=== PATIENT | male | born 1950 | race Caucasian/White ===

== ENCOUNTER 2023-12-24 08:04 | Outpatient (OUT) | payer MEDICARE, OTHER, SELFPAY ==
[2023-12-24 10:36] LABS: Prostate Specific Antigen Dx 1.34 ng/mL (<=4.00)
== END 2023-12-24 08:05 | disposition home or self-care (01) ==
LOC: LAB 08:08
PROVIDERS: PCP Family Medicine; Visit Provider Urology
DX: R97.20 Elevated prostate specific antigen [PSA] (principal)
CPT/HCPCS: 36415; 84153

== ENCOUNTER 2024-01-27 09:41 | Outpatient (OUT) | payer MEDICARE, OTHER, SELFPAY ==
--- NOTE | 2024-01-27 09:47 | XR_ITS ---
The [address] [address] Patient Name: BRODY HUFFMAN MRN: [id number] date: 1950 Sex: M Assigned Patient Location: RAD Current Patient Location: RAD Accession/Order Number: [id number] Exam Date: 01/27/2024 09:58 Report Date: 01/27/2024 10:47 At the request of: AURELIA CLEMENTS Procedure: XR chest 2V PROCEDURE: XR chest 2V DATE: 01/27/2024 9:58 AM EST COMPARISONS: 08/03/2022 CLINICAL INDICATION: 73 years Male Cough FINDINGS: The cardiomediastinal silhouette and pulmonary vasculature are within normal limits. There is mild to moderate diffuse increased interstitial markings throughout all lung egan slightly more prominent than 08/03/2022. Some of this probably represents chronic lung changes. Some of this could represent a small amount of interstitial fluid or interstitial inflammatory infiltrate. There is no evidence of pleural effusion or pneumothorax. XR/XR chest 2V IMPRESSION: Mild to moderate diffuse increase interstitial markings of unclear etiology. Inflammatory infiltrate is a possibility given the history of cough. It's possible however that most of this represents chronic lung changes. Electronically authenticated by: JOSUE CORONA Date: 01/27/2024 10:47
--- OUTSIDE RECORDS SUMMARY | 2024-01-27 10:01 | XMS_ITS | CCD ---
Author Organization [facility] Care Team Providers Care Belt Tender Name Role Phone SOCORRO MAN Primary Care Physician JAMARCUS ., SHERRY Admitting Unavailable MAN ., DR SOCORRO Allen Primary Care Unavailable JAMARCUS ., SHERRY Attending Unavailable JAMARCUS ., SHERRY Consulting Unavailable [place] Consulting Unavailable DONOVAN ., DR SOCORRO Allen Admitting Unavailable MAN ., DR SOCORRO Allen Attending Unavailable MAN ., DR SOCORRO Allen Consulting Unavailable MAN ., DR SOCORRO Allen Primary Care Unavailable MAN ., DR SOCORRO Allen Primary Care Unavailable EVANS ., DR MCCOLLUM Admitting Unavailable EVANS ., DR MCCOLLUM Attending Unavailable ABBY ., DR MCCOLLUM Consulting Unavailable Kyle Daly. Primary Care Physician [phone] LIAN MONTENEGRO Attending Unavailable Kyle Daly Attending Unavailable Duane EVANS Attending Unavailable Duane EVANS Attending Unavailable Kyle Daly Attending Unavailable Kyle Daly Attending Unavailable Kyle Daly Attending Unavailable Kyle Daly. Attending Unavailable Allergies Allergy Classification Reported Allergen(s) Allergy Type Date of Onset Reaction(s) Facility (12 sources) Sulfamethoxazole / Trimethoprim; Translations: [sulfamethoxazole-tr imethoprim] Drug Allergy Unknown (qualifier value), Weal (disorder) [facility] (12 sources) Sulfonamides (Antibiotic); Translations: [sulfa drugs] Drug allergy Mild (qualifier value), Weal (disorder) [facility] (1 source) Sulfonamides (Antibiotic) Drug allergy (disorder) 3 [facility] Repository Medications Current Medications Medication Drug Class(es) Dates Sig (Normalized) Sig (Original) Acetaminophen (5 sources) Start: 10-22-2022 acetaminophen 500 mg, PRN as needed for pain, Refills(s) 0 Start Date: 10/22/22 Status: Ordered acetaminophen 325 mg / HYDROcodone bitartrate 7.5 mg oral tablet (3 sources) Opioid Agonist Start: 05-29-2022 take 1 tablet by mouth once Dana 325 mg-7.5 mg oral tablet 1 tab(s), Oral, Once, 1 tab(s), Refill(s) 0, Take 1 hour prior to procedure. Don't drive or operate machinery while taking., [facility], 180, cm, 05/29/22 8:08:00 EST, Height/Length Dosing, 99, kg, 05/29/22 8:08:00 EST, Weight Dosing Start Date: 05/29/22 Status: Ordered Ascorbic Acid (7 sources) Vitamin C Start: 09-02-2022 Vitamin C Oral, Daily, Refills(s) 0, Prophylaxis Start Date: 09/02/22 Status: Ordered Start: 09-02-2022 Vitamin C Refi lls(s) 0 Start Date: 09/02/22 Status: Ordered ciprofloxacin 500 mg oral tablet (2 sources) Quinolone Antimicrobial Start: 05-29-2022 End: 06-05-2022 Cipro 500 mg Tab 500 mg = 1 tab(s), Oral, q12hr, Start 3 days prior to procedure, X 7 day(s), # 14 tab(s), Refills(s) 0, Pharmacy: [facility], 180, cm, 05/29/22 8:08:00 EST, Height/Length Dosing, 99, kg, 05/29/22 8:08:00 EST, Weight Dosing Start Date: 05/29/22 Stop Date: 06/05/22 Status: Ordered Co-Q10 (1 source) Start: 10-25-2023 Co-Q10 See Instructions, Oral daily, Refills(s) 0 Start Date: 10/25/23 Status: Ordered finasteride 5 mg oral tablet (11 sources) 5-alpha Reductase Inhibitor Start: 12-27-2023 take 1 tablet by mouth once daily finasteride 5 mg Tab 5 mg = 1 tab(s), Oral, Daily, # 30 tab(s), Refills(s) 11, Pharmacy: [facility], 180, cm, 12/27/23 9:00:00 EDT, Height/Length Dosing, 106, kg, 12/27/23 9:00:00 EDT, Weight Dosing Start Date: 12/27/23 Status: Ordered Start: 04-21-2022 take 1 tablet by [facility] once daily finasteride 5 mg Tab 5 mg = 1 tab(s), Oral, Daily, # 30 tab(s), Refills(s) 11, Pharmacy: [facility], 180, cm, 05/28/21 8:49:00 EST, Height/Length Dosing, 99, kg, 05/28/21 8:49:00 EST, Weight Dosing Start Date: 04/21/22 Status: Ordered Fish Oils (7 sources) Start: 09-21-2022 take 1 capsule by [facility] once daily Fish Oil 500 mg oral capsule 500 mg = 1 cap(s), Oral, Daily, Refills(s) 0, Prophylaxis Start Date: 09/21/22 Status: Ordered Start: 09-21-2022 take 1 capsule by [facility] once daily Fish Oil 500 mg oral capsule 500 mg = 1 cap(s), Oral, Daily, Refills(s) 0 Start Date: 09/21/22 Status: Ordered melatonin 3 mg oral tablet (5 sources) Start: 10-22-2022 take 3 mg by mouth once daily at bedtime as needed for sleep melatonin 3 mg, Oral, Once a day (at bedtime), PRN as needed for sleep, Refills(s) 0, Sleep Start Date: 10/22/22 Status: Ordered Start: 10-22-2022 melatonin 3 mg , PRN as needed for sleep, Refills(s) 0 Start Date: 10/22/22 Status: Ordered Multi Vitamin+ (11 sources) Start: 05-04-2019 Multi Vitamin+ Refill(s) 0, Prophylaxis Start Date: 05/04/19 Status: Ordered Start: 05-04-2019 Multi Vitamin+ Refill(s) 0 Start Date: 05/04/19 Status: Ordered naproxen 500 mg oral tablet (5 sources) Nonsteroidal Anti-inflammatory Drug Start: 10-22-2022 naproxen 500 mg, Oral, PRN as needed for pain, Refills(s) 0 Start Date: 10/22/22 Status: Ordered Vitamin D (11 sources) Start: 05-10-2020 Vitamin D International_Unit, Oral, Daily, Refills(s) 0, Prophylaxis Start Date: 05/10/20 Status: Ordered Start: 05-10-2020 Vitamin D Inte rnational_Unit, Oral, Daily, Refills(s) 0 Start Date: 05/10/20 Status: Ordered Zinc (11 sources) Start: 05-28-2021 take 1 mg by mouth once daily Zinc mg, Oral, Daily, Refills(s) 0, Prophylaxis Start Date: 05/28/21 Status: Ordered Start: 05-28-2021 take 1 mg by mouth once daily Zinc mg, Oral, Daily, Refills(s) 0 Start Date: 05/28/21 Status: Ordered Problems Active Problems Problem Classification Problem Date Documented Da te Episodic/Chronic Cataract (1 source) Bilateral age-related nuclear cataracts Onset: 09-21-2023 10-25-2023 Chronic Genitourinary symptoms and ill-defined conditions (20 sources) Blood in urine; Translations: [Increased frequency of urination] 05-04-2019 Episodic Hyperplasia of prostate (19 sources) Benign prostatic hypertrophy with outflow obstruction; Translations: [Benign prostatic hyperplasia with lower urinary tract symptoms] Onset: 05-25-2022 Chronic Inflammatory conditions of male genital organs (11 sources) Prostatitis 05-04-2019 Episodic Other aftercare (1 source) Other [place] [facility] (current) drug therapy; Translations: [OTH [facility] CURRENT DRUG THERAPY] Onset: 08-04-2022 Episodic Other male genital disorders (3 sources) Male erectile dysfunction, unspecified; Translations: [Erectile dysfunction] Onset: 05-29-2022 Chronic Other male genital disorders (11 sources) Impotence 05-12-2019 Chronic Other nutritional; endocrine; and metabolic disorders (7 sources) Body mass index 30+ - obesity 05-29-2022 Chronic Other screening for suspected conditions (not mental disorders or infectious disease) (14 sources) Raised prostate specific antigen; Translations: [Elevated prostate specific antigen [PSA]] Onset: 05-29-2022 Episodic Other upper respiratory disease (5 sources) Seasonal allergy 10-22-2022 Chronic Pneumonia (except that caused by tuberculosis or sexually transmitted disease) (1 source) Pneumonia (except that caused by tuberculosis or sexually transmitted disease); Translations: [PNEUMONIA D/T CORONAVIRUS DIS 2019] Onset: 08-04-2022 Pulmonary heart disease (10 sources) Personal history of pulmonary embolism; Translations: [H/O: pulmonary embolus] Onset: 08-04-2022 09-02-2022 Episodic Residual codes; unclassified (3 sources) Family history of cancer; Translations: [Family history of malignant neoplasm of prostate] Onset: 05-29-2022 Episodic Residual codes; unclassified (11 sources) Family history of prostate cancer 05-12-2019 Episodic Residual codes; unclassified (4 sources) Screening - NAD 05-29-2022 Episodic Screening and history of mental health and substance abuse codes (14 sources) Ex-smoker; Translations: [Personal history of nicotine dependence] Onset: 08-04-2022 05-12-2019 Episodic Unclassified (4 sources) Non-smoker 05-29-2022 Unclassified (2 sources) COUGH, UNSPECIFIED; Translations: [COUGH, UNSPECIFIED] Onset: 08-04-2022 Unclassified (3 sources) CONTACT W/AND (SUSP) EXPOS COVID-19; Translations: [CONTACT W/AND (SUSP) EXPOS COVID-19] Onset: 02-02-2022 Viral infection (8 sources) COVID-19; Translations: [Disease caused by 2019-nCoV] Onset: 08-04-2022 09-02-2022 Past or Other Problems Problem Classification Problem Date Documented Da te Episodic/Chronic Other and unspecified benign neoplasm (4 sources) Polyp of colon; Translations: [Polyp of colon] Onset: 11-30-2022 Episodic Residual codes; unclassified (4 sources) Family history of malignant neoplasm of digestive organ; Translations: [Family history of malignant neoplasm of digestive organs] Onset: 11-02-2022 Episodic Unclassified (1 source) COUGH, UNSPECIFIED; Translations: [COUGH, UNSPECIFIED] Onset: 08-03-2022 Unclassified (1 source) CONTACT W/AND (SUSP) EXPOS COVID-19; Translations: [CONTACT W/AND (SUSP) EXPOS COVID-19] Onset: 01-30-2022 Results Test Name Value Interpretation Reference Range Facility Ambulatory Visit Summaryon 1 Ambulatory Visit Summary Ambulatory Visit Summary BRODY HUFFMAN :1950 Visit Date:01/17/2024 Ambulatory Visit Instructions Your Diagnosis Cough BMI 33.0-33.9,adult Exogenous obesity Former smoker Your Care Team Attending Physician - Kyle Daly MD Primary Care Physician - Kyle Daly MD This Is Your Medications List azithromycin (azithromycin 250 mg Tab) benzonatate (benzonatate 200 mg oral capsule) budesonide (budesonide 0.5 mg/2 mL Inh Susp) methylPREDNISolone (Medrol Dosepack 4 mg Tab) Contact prescribing physician if questions or concerns acetaminophen ascorbic acid (Vitamin C) atorvastatin (atorvastatin 10 mg Tab) ergocalciferol (Vitamin D) finasteride (finasteride 5 mg Tab) melatonin multivitamin (Multi Vitamin+) naproxen omega-3 polyunsaturated fatty acids (Fish Oil 500 mg oral capsule) ubiquinone (Co-Q10) zinc sulfate (Zinc) Procedures Performed Colonoscopy (11/30/2022), Stellate ganglion block using fluoroscopic guidance (11/16/2022), Stellate ganglion block using fluoroscopic guidance (10/13/2022), Transrectal biopsy of prostate using ultrasound (US) guidance (06/16/2022), Arthroscopy of knee (10/27/2014), Transrectal biopsy of prostate using ultrasound (US) guidance (03/27/2008), Arthroscopy of knee, Cataract, Cataract of left eye, Colonoscopy, Procedure on knee. Discharge Vitals Temperature (Temporal Artery) 36.1 ???C Heart Rate (Peripheral) 72 Respiratory Rate 16 Blood Pressure 136/80 Height 180 cm Height 71 in Weight 108.0 kg Weight 237.6 lb BMI 33.33 What to do next Scheduled Follow-Up Appointments Wednesday 9:15 AM EST With: Kyle Daly MD Where: [address] [address]- 2024 1:00 PM EDT With: Where: [address] [address]- Wednesday 8:15 AM EDT With: ABBY ELDER, Duane Evans Where: [facility] [address] [place] [address]- Medications What How Much When Why Instructions New azithromycin (azithromycin 250 mg Tab) 1 Packets By Mouth As Directed Cough BMI 33.0-33.9,adult Exogenous obesity Former smoker Duration: 5 Days as directed on package labeling Pickup at [facility] New benzonatate (benzonatate 200 mg oral capsule) 1 Capsules By Mouth 3 times a day Cough BMI 33.0-33.9,adult Exogenous obesity Former smoker Duration: 7 Days Pickup at [facility] New methylPREDNISolone (Medrol Dosepack 4 mg Tab) 1 Packets By Mouth As Directed Cough BMI 33.0-33.9,adult Exogenous obesity Former smoker Duration: 6 Days as directed on package labeling Pickup at [facility] Unchanged budesonide (budesonide 0.5 mg/ 2 mL Inh Susp) 2 Milliliter Nebulized inhalation (aerosol) 2 times a day Pickup at [facility] Unchanged acetaminophen 500 Milligram As needed for as needed for pain Contact prescribing physician if questions or concerns Unchanged ascorbic acid (Vitamin C) By Mouth Every day Contact prescribing physician if questions or concerns Unchanged atorvastatin (atorvastatin 10 mg Tab) See instructions 1 tab(s) Oral every other day Contact prescribing physician if questions or concerns Unchanged ergocalciferol (Vitamin D) By Mouth Every day Contact prescribing physician if questions or concerns Unchanged finasteride (finasteride 5 mg Tab) 1 Tablets By Mouth Every day Contact prescribing physician if questions or concerns Unchanged melatonin 3 Milligram By Mouth Once a day (at bedtime) as needed for as needed for sleep Contact prescribing physician if questions or concerns Unchanged multivitamin (Multi Vitamin+) Contact prescribing physician if questions or concerns Unchanged naproxen 500 Milligram By Mouth As needed for as needed for pain Contact prescribing physician if questions or concerns Unchanged omega-3 polyunsaturated fatty acids (Fish Oil 500 mg oral capsule) 1 Capsules By Mouth Every day Contact prescribing physician if questions or concerns Unchanged ubiquinone (Co-Q10) See instructions Oral daily Contact prescribing physician if questions or concerns Unchanged zinc sulfate (Zinc) By Mouth Every day Contact prescribing physician if questions or concerns Pharmacy Information [facility]: [address] [place], [place] [phone] Allergies Bactrim (Hives, Unknown) sulfa drugs (Hives, Mild) Problems Ongoing - Any problem that you are currently receiving treatment for. Bilateral age-related nuclear cataracts BMI 32.0-32.9,adult BPH with urinary obstruction Elevated PSA Family history of malignant neoplasm of digestive organ Family history of prostate cancer Former smoker Hematuria History of pulmonary embolus (PE) Impotence Long C (more content not included)... Normal [facility] Family Medicine Office/Clini c Noteon 01-17-2024 Family Medicine Office/Clinic Note Family Medicine Office/Clinic Note HPI Staff Brody is a 73 year old male presenting for acute visit Acute: would like his lungs checked, congested Will do flu vaccine when over this illness Onset: woke up on the and first time he had any symptoms and feels better than he did then in the mornings has a very productive cough, the sputum is yellow, this morning it's dark and frequent cough, yesterday when blew his nose felt like it was ripping out the inside of his ears. Fever for a couple days in the beginning Due to his past history and what he went through with covid and PEs he gets nervous about his breathing. History of Present Illness - See staff HPI. Review of Systems PHQ Score Initial Depression Screen Score: 0 SCORE Physical Exam Vitals & Measurements T: 36.1 ???C(Temporal Artery) HR: 72(Peripheral) RR: 16 BP: 136/80 SpO2: 99% HT: 71 in HT: 180 cm WT: 108.0 kg WT: 237.6 lb BMI: 33.33 General: alert, no acute distress ENMT: oral mucosa moist, Cardiovascular: regular rate and rhythm, normal peripheral perfusion Respiratory: Lungs CTA, respirations non labored Extremities: no deformity, no trauma Neurological: oriented x 4, LOC appropriate for age, CN II-XII intact, motor strength equal & normal bilaterally, speech normal Abdomen: Soft, Nontender, Non-distended, + BS Assessment/Plan 1. Cough (R05.9: Cough, unspecified) Likely Viral, but given this is going on day 10 we will do azithromycin and Medrol Dosepak. Patient to follow-up as needed. Ordered: azithromycin, = 1 packet(s), Oral, As Directed, as directed on package labeling, X 5 day(s), # 6 tab(s), Refills(s) 0, Pharmacy: [facility], 180, cm, 01/17/24 9:12:00 EDT, Height/Length Dosing, 108, kg, 01/17/24 9:12:00 EDT, Weight Dosing benzonatate, 200 mg = 1 cap(s), Oral, TID, X 7 day(s), # 21 cap(s), Refills(s) 0, Pharmacy: [facility], 180, cm, 01/17/24 9:12:00 EDT, Height/Length Dosing, 108, kg, 01/17/24 9:12:00 EDT, Weight Dosing methylPREDNISolone, = 1 packet(s), Oral, As Directed, as directed on package labeling, X 6 day(s), # 21 tab(s), Refills(s) 0, Pharmacy: [facility], 180, cm, 01/17/24 9:12:00 EDT, Height/Length Dosing, 108, kg, 01/17/24 9:12:00 EDT, Weight Dosing Rapid COVID POC 50113 2. BMI 33.0-33.9,adult (Z68.33: Body mass index [BMI] 33.0-33.9, adult) BMI education added Ordered: azithromycin, = 1 packet(s), Oral, As Directed, as directed on package labeling, X 5 day(s), # 6 tab(s), Refills(s) 0, Pharmacy: [facility], 180, cm, 01/17/24 9:12:00 EDT, Height/Length Dosing, 108, kg, 01/17/24 9:12:00 EDT, Weight Dosing benzonatate, 200 mg = 1 cap(s), Oral, TID, X 7 day(s), # 21 cap(s), Refills(s) 0, Pharmacy: [facility], 180, cm, 01/17/24 9:12:00 EDT, Height/Length Dosing, 108, kg, 01/17/24 9:12:00 EDT, Weight Dosing methylPREDNISolone, = 1 packet(s), Oral, As Directed, as directed on package labeling, X 6 day(s), # 21 tab(s), Refills(s) 0, Pharmacy: [facility], 180, cm, 01/17/24 9:12:00 EDT, Height/Length Dosing, 108, kg, 01/17/24 9:12:00 EDT, Weight Dosing Body Mass Index (BMI) documented 3008F Current tobacco non-user 1036F Depression Screening Negative 3352F Influenza immunization status assessed 1030F Most recent diastolic blood pressure 80-89 mm Hg 3079F Patient screen for fall risk: no falls in last year or 1 fall with no injury in last year 1101F Systolic BP 130-139 mm Hg (Most Recent) 3075F 3. Exogenous obesity (E66.09: Other obesity due to excess calories) Diet and exercise advised Ordered: azithromycin, = 1 packet(s), Oral, As Directed, as directed on package labeling, X 5 day(s), # 6 tab(s), Refills(s) 0, Pharmacy: [facility], 180, cm, 01/17/24 9:12:00 EDT, Height/Length Dosing, 108, kg, 01/17/24 9:12:00 EDT, Weight Dosing benzonatate, 200 mg = 1 cap(s), Oral, TID, X 7 day(s), # 21 cap(s), Refills(s) 0, Pharmacy: [facility], 180, cm, 01/17/24 9:12:00 EDT, Height/Length Dosing, 108, kg, 01/17/24 9:12:00 EDT, Weight Dosing methylPREDNISolone, = 1 packet(s), Oral, As Directed, as directed on package labeling, X 6 day(s), # 21 tab(s), Refills(s) 0, Pharmacy: [facility], 180, cm, 01/17/24 9:12:00 EDT, Height/Length Dosing, 108, kg, 01/17/24 9:12:00 EDT, Weight Dosing Body Mass Index (BMI) documented 3008F Current tobacco non-user 1036F Depression Screening Negative 3352F Influenza immunization status assessed 1030F Most recent diastolic blood pressure 80-89 mm Hg 3079F Patient screen for fall risk: no falls in last year or 1 fall with no injury in last year 1101F Systolic BP 130-139 mm Hg (Most Recent) 3075F 4. Former smoker (Z87.891: Personal history of nicotine dependence) Please continue not to smoke. Ordered: azithromycin, = 1 packet(s), Oral, As Directed, as directed on package labeling, X 5 day(s), # 6 tab(s), Refills(s) 0, Pharmacy: [facility], 180, cm, 01/17/24 (more content not included)... Normal [facility] Comment on above: Result Comment: Elec tronically Signed By: Addy ELDER, Kyle Walton\.br\Date and Time Signed: 01/17/24 09:36 EDT Ambulatory Visit Summaryon 1 Ambulatory Visit Summary Ambulatory Visit Summary BRODY HUFFMAN :1950 Visit Date:12/27/2023 Ambulatory Visit Instructions Your Diagnosis Elevated PSA BPH with urinary obstruction Family history of prostate cancer Impotence Your Care Team Attending Physician - ABBY ELDER, Duane Evans Primary Care Physician - Addy ELDER, Kyle Walton This Is Your Medications List finasteride (finasteride 5 mg Tab) Contact prescribing physician if questions or concerns acetaminophen ascorbic acid (Vitamin C) ergocalciferol (Vitamin D) melatonin multivitamin (Multi Vitamin+) naproxen omega-3 polyunsaturated fatty acids (Fish Oil 500 mg oral capsule) ubiquinone (Co-Q10) zinc sulfate (Zinc) Procedures Performed Colonoscopy (11/30/2022), Stellate ganglion block using fluoroscopic guidance (11/16/2022), Stellate ganglion block using fluoroscopic guidance (10/13/2022), Transrectal biopsy of prostate using ultrasound (US) guidance (06/16/2022), Arthroscopy of knee (10/27/2014), Transrectal biopsy of prostate using ultrasound (US) guidance (03/27/2008), Arthroscopy of knee, Cataract, Cataract of left eye, Colonoscopy, Procedure on knee. Discharge Vitals Heart Rate (Peripheral) 69 Respiratory Rate 16 Blood Pressure 148/90 Height 71 in Height 180 cm Weight 233.2 lb Weight 106 kg BMI 32.72 What to do next Scheduled Follow-Up Appointments Wednesday 9:15 AM EST With: Addy ELDER, Kyle Walton Where: [address] [address]24 1:00 PM EDT With: Where: [address] [address]- Wednesday 8:15 AM EDT With: Duane EVANS MD Where: [facility] [address] [place] [address]- You Need to Schedule the Following Appointments Follow Up with ABBY ELDER, Duane Evans, URL When: Comments: 1 yr w/ PSA Where: [facility] [address], [place] [address]- [phone] Medications What How Much When Instructions Unchanged finasteride (finasteride 5 mg Tab) 1 Tablets By Mouth Every day Pickup at [facility] Unchanged acetaminophen 500 Milligram As needed for as needed for pain Contact prescribing physician if questions or concerns Unchanged ascorbic acid (Vitamin C) By Mouth Every day Contact prescribing physician if questions or concerns Unchanged ergocalciferol (Vitamin D) By Mouth Every day Contact prescribing physician if questions or concerns Unchanged melatonin 3 Milligram By Mouth Once a day (at bedtime) as needed for as needed for sleep Contact prescribing physician if questions or concerns Unchanged multivitamin (Multi Vitamin+) Contact prescribing physician if questions or concerns Unchanged naproxen 500 Milligram By Mouth As needed for as needed for pain Contact prescribing physician if questions or concerns Unchanged omega-3 polyunsaturated fatty acids (Fish Oil 500 mg oral capsule) 1 Capsules By Mouth Every day Contact prescribing physician if questions or concerns Unchanged ubiquinone (Co-Q10) See instructions Oral daily Contact prescribing physician if questions or concerns Unchanged zinc sulfate (Zinc) By Mouth Every day Contact prescribing physician if questions or concerns Pharmacy Information [facility]: [address] [place], [place] [phone] Allergies Bactrim (Hives, Unknown) sulfa drugs (Hives, Mild) Problems Ongoing - Any problem that you are currently receiving treatment for. Bilateral age-related nuclear cataracts BMI 32.0-32.9,adult BPH with urinary obstruction Elevated PSA Family history of malignant neoplasm of digestive organ Family history of prostate cancer Former smoker Hematuria History of pulmonary embolus (PE) Impotence Long COVID Nocturia Polyp of colon Prostatitis Seasonal allergies Urinary frequency Patient Survey You may receive a survey via text or e-mail asking about your office visit. Please share your experience with us by completing your survey. We appreciate your feedback and thank you for choosing us for your care. Education Materials Prostate Cancer Screening Prostate cancer screening is testing that is done to check for the presence of prostate cancer in men. The prostate gland is a walnut-sized gland that is located below the bladder and in front of the rectum in males. The function of the prostate is to add fluid to semen during ejaculation. Prostate cancer is one of the most common types of cancer in men. Who should have prostate cancer screening? Screening recommendations vary based on age and other risk factors, as well as between the professional organizations who make the recommendations. In general, screening is recommended if: ? Y (more content not included)... Normal [facility] Urology Office/Clinic Noteon 12-27-2023 Urology Office/Clinic Note Urology Office/Clinic Note Chief Complaint 1 year follow up HPI Staff 73 year old male patient presents today for a year follow up with PSA. DX: Elevated PSA, BPH, Impotence & Fam Hx of Prostate Cancer (Uncle) Current PSA: 1.34 12/24/23, 1.31 12/15/23 S/P NEG TRUS/Bx 06/16/22 *Finasteride 5mg qd therapy. Dysuria: denies Incomplete bladder emptying: denies Hematuria: denies visible blood Frequency: denies Urgency: denies Nocturia: once a night Stream: denies hesitancy, has a steady stream, a little stop and go Leaking: denies Post void dripping: denies Wearing pads/ Depends: denies Urge incontinence: denies Stress incontinence: denies Incontinence without Sensory Awareness: denies Abdominal pain: denies Flank pain: denies Sexual complaints: _ History of Present Illness Tests reviewed: reviewed UA, PSAs I have reviewed the previous health record information and history for this patient from Dr. Evans. I have reviewed and verified the staff HPI to be accurate for this encounter. Review of Systems PHQ Score Initial Depression Screen Score: 0 SCORE ROS - Provider Constitutional: denies weight loss, denies hot flashes. Eyes: denies eye problems. Gastrointestinal: denies nausea, denies vomiting. Cardiovascular: denies chest pain or angina. Integumentary: no dryness Musculoskeletal: denies musculoskeletal symptoms. ENMT: denies otolaryngeal symptoms. Respiratory: no shortness of breath. Heme/Lymph: denies easy bleeding tendency, denies easy bruising tendency. Psychiatric: no confusion, no anxiety. Genitourinary: See HPI. Physical Exam Vitals & Measurements HR: 69(Peripheral) RR: 16 BP: 148/90 HT: 71 in HT: 180 cm WT: 106 kg WT: 233.2 lb BMI: 32.72 General Appearance: alert, no distress, well nourished, well developed male. Assessment/Plan 1. Elevated PSA (R97.20: Elevated prostate specific antigen [PSA]) PSA: 01/2019 - 1.2 (2.4) 01/2020 - 1.5 (3.0) 05/2021 - 1.0 (2.0) 05/25/22 - 2.39 (4.78) 05/29/22 - 5.1 (10.2) 12/10/22 - 1.19 (2.38) 12/15/23 - 1.31 (2.62) 12/24/23 - 1.34 (2.68) Neg bx 2008. S/p TRUS/bx 06/16/22 - Path benign, a couple cores of patchy chronic acute inflammation. PSA remains stable. No indication for intervention at this time, will cont to monitor. -F/u in 1 yr w/ PSA 2. BPH with urinary obstruction (N40.1: Benign prostatic hyperplasia with lower urinary tract symptoms) Taking Finasteride 5mg qd. UA today negative for blood and infection. Gets up 1x/night, not bothersome. No urinary habit complaints. -Cont Finasteride wo changes. Refills sent to [facility]. 3. Family history of prostate cancer (Z80.42: Family history of malignant neoplasm of prostate) Uncle. [1] 4. Impotence (N52.9: Male erectile dysfunction, unspecified) No longer taking Sildenafil therapy. Follow-up With When Contact Information ABBY ELDER, Duane Evans, URL [facility] [address] [place] [address]- [phone] Additional Instructions: 1 yr w/ PSA Patient Education Prostate Cancer Screening I, Andree Fonseca, personally scribed for Dr. Evans on 12/27/2023 09:41:55. . Documentation recorded by the scribe, Andree Fonseca, accurately reflects the services(s) I performed and decisions made by me. Authenticated by Dr. Evans on 12/27/2023 09:43:33. Problem List/Past Medical History Ongoing Bilateral age-related nuclear cataracts BMI 32.0-32.9,adult BPH with urinary obstruction Elevated PSA Family history of malignant neoplasm of digestive organ Family history of prostate cancer Former smoker Hematuria History of pulmonary embolus (PE) Impotence Long COVID Nocturia Polyp of colon Prostatitis Seasonal allergies Urinary frequency Historical No qualifying data Procedure/Surgical History Colonoscopy (11/30/2022), Stellate ganglion block using fluoroscopic guidance (11/16/2022), Stellate ganglion block using fluoroscopic guidance (10/13/2022), Transrectal biopsy of prostate using ultrasound (US) guidance (06/16/2022), Arthroscopy of knee (10/27/2014), Transrectal biopsy of prostate using ultrasound (US) guidance (03/27/2008), Arthroscopy of knee, Cataract, Cataract of left eye, Colonoscopy, Procedure on knee. Medications acetaminophen, 500 mg, PRN Co-Q10, See Instructions finasteride 5 mg Tab, 5 mg= 1 tab(s), Oral, Daily, 11 refills Fish Oil 500 mg oral capsule, 500 mg= 1 cap(s), Oral, Daily melatonin, 3 mg, Oral, Once a day (at bedtime), PRN Multi Vitamin+ naproxen, 500 mg, Oral, PRN Vitamin C, Oral, Daily Vitamin D, Oral, Daily Zinc, Oral, Daily Allergies Bactrim (Hives, Unknown) sulfa drugs (Hives, Mild) Social History Alcohol - Denies Alcohol Use, 05/04/2019 Household alcohol concerns: No., 10/25/2023 Substance Abuse - Denies Substance Abuse, 11/02/2022 Tobacco Former smoker, quit more than 30 days ago Tobacco Use:. Never Smokel (more content not included)... Normal [facility] Comment on above: Result Comment: Elec tronically Signed By: Duane EVANS MD\.br\Date and Time Signed: 12/27/23 09:43 EDT\.br\Electronically Co-Signed By: Andree Fonseca\.br\Date and Time Co-Signed: 12/27/23 09:42 EDT Ambulatory Visit Summaryon 0 10-26-2023 Ambulatory Visit Summary Ambulatory Visit Summary ARMIDA BRODY Johnson :1950 Visit Date:10/25/2023 Ambulatory Visit Instructions Your Diagnosis Encounter for annual wellness exam in Medicare patient BPH with urinary obstruction Obesity due to excess calories Your Care Team Attending Physician - Kyle Daly MD Primary Care Physician - Kyle Daly MD This Is Your Medications List acetaminophen ascorbic acid (Vitamin C) ergocalciferol (Vitamin D) finasteride (finasteride 5 mg Tab) melatonin multivitamin (Multi Vitamin+) naproxen omega-3 polyunsaturated fatty acids (Fish Oil 500 mg oral capsule) ubiquinone (Co-Q10) zinc sulfate (Zinc) Procedures Performed Colonoscopy (11/30/2022), Stellate ganglion block using fluoroscopic guidance (11/16/2022), Stellate ganglion block using fluoroscopic guidance (10/13/2022), Transrectal biopsy of prostate using ultrasound (US) guidance (06/16/2022), Arthroscopy of knee (10/27/2014), Transrectal biopsy of prostate using ultrasound (US) guidance (03/27/2008), Arthroscopy of knee, Cataract of left eye, Colonoscopy, Procedure on knee. Discharge Vitals Height 180 cm Height 71 in Weight 105.5 kg Weight 232.1 lb BMI 32.56 What to do next Scheduled Follow-Up Appointments Wednesday 8:45 AM EDT With: Duane EVANS MD Where: [facility] [address] [address]- Wednesday 9:15 AM EST With: Kyle Daly MD E. Where: [address] [address]- 2024 1:00 PM EDT With: Where: [address] [address]- Medications What How Much When Instructions Unchanged acetaminophen 500 Milligram As needed for as needed for pain Unchanged ascorbic acid (Vitamin C) By Mouth Every day Unchanged ergocalciferol (Vitamin D) By Mouth Every day Unchanged finasteride (finasteride 5 mg Tab) 1 Tablets By Mouth Every day Unchanged melatonin 3 Milligram By Mouth Once a day (at bedtime) as needed for as needed for sleep Unchanged multivitamin (Multi Vitamin+) Unchanged naproxen 500 Milligram By Mouth As needed for as needed for pain Unchanged omega-3 polyunsaturated fatty acids (Fish Oil 500 mg oral capsule) 1 Capsules By Mouth Every day Unchanged ubiquinone (Co-Q10) See instructions Oral daily Unchanged zinc sulfate (Zinc) By Mouth Every day Allergies Bactrim (Hives, Unknown) sulfa drugs (Hives, Mild) Problems Ongoing - Any problem that you are currently receiving treatment for. Bilateral age-related nuclear cataracts BMI 32.0-32.9,adult BPH with urinary obstruction Elevated PSA Family history of malignant neoplasm of digestive organ Family history of prostate cancer Former smoker Hematuria History of pulmonary embolus (PE) Impotence Long COVID Nocturia Polyp of colon Prostatitis Seasonal allergies Urinary frequency Patient Survey You may receive a survey via text or e-mail asking about your office visit. Please share your experience with us by completing your survey. We appreciate your feedback and thank you for choosing us for your care. Education Materials Health Maintenance After Age 65 After age 65, you are at a higher risk for certain long-term diseases and infections as well as injuries from falls. Falls are a major cause of broken bones and head injuries in people who are older than age 65. Getting regular preventive care can help to keep you healthy and well. Preventive care includes getting regular testing and making lifestyle changes as recommended by your health care provider. Talk with your health care provider about: ? Which screenings and tests you should have. A screening is a test that checks for a disease when you have no symptoms. ? A diet and exercise plan that is right for you. What should I know about screenings and tests to prevent falls? Screening and testing are the best ways to find a health problem early. Early diagnosis and treatment give you the best chance of managing medical conditions that are common after age 65. Certain conditions and lifestyle choices may make you more likely to have a fall. Your health care provider may recommend: ? Regular vision checks. Poor vision and conditions such as cataracts can make you more likely to have a fall. If you wear glasses, make sure to get your prescription updated if your vision changes. ? Medicine review. Work with your health care provider to regularly review all of the medicines you are taking, including [id number] medicines. Ask your health care provider about any side effects that may make you more likely to have a fall. Tell your health care provider if any medicines that you take make you feel dizzy or sleepy. ? Strength and balance hailey (more content not included)... Normal [facility] Family Medicine Office/Clini c Noteon 10-26-2023 Family Medicine Office/Clinic Note Family Medicine Office/Clinic Note Chief Complaint subsequent medicare wellness History of Present Illness Covid-19, MERS, Ebola Screen *Contact With Person With Highly Contagious Disease Like Ebola/MERS/COVID-19 AND Have One or More of the Symptoms Below : No *Travel to a Country With Wide-Spread Ebola/MERS/COVID-19 in the Past 21 Days AND Have One or More of the Symptoms Below : No Patient Reported Covid-19 Testing : No *Verify Droplet, Contact Precautions for Ebola (Reference for CDC) : N/A *Verify Airborne, Droplet Precautions for MERS/COVID-19 : N/A Lyssa Foreman - 10/25/2023 13:11 EDT Medicare/Medicaid Summary Patient Counseled : Nutrition Pain Present : Yes actual or suspected pain Numeric Rating Pain Scale : 4 Primary Pain Comments : knees, left shoulder, and hips Lyssa Foreman 10/25/2023 13:16 EDT Chief Complaint : subsequent medicare wellness Height/Length Measured : 180 cm(Converted to: 5 ft 11 in, 70.87 in) Weight Measured : 105.5 kg(Converted to: 232 lb 9 Ounces, 232.588 lb) Body Mass Index Measured : 32.56 kg/m2 Height in Inches : 71 in Weight in Pounds : 232.1 lb Lyssa Foreman 10/25/2023 13:11 EDT Hearing and Vision Screening FT FT Whisper Test Comments : no hearing deficts Vision Screen Comments : corrective lens. sees Dr. Sousa. Lyssa Foreman 10/25/2023 13:16 EDT Advance Directive FT Advance Directive : No Patient Wishes to Receive Further Information on Advance Directives : No (Comment: has at home. did not fill out yet. [Lyssa Foreman - 10/25/2023 13:16 EDT] ) Organ Donation Consent : Yes Lyssa Foreman 10/25/2023 13:16 EDT Procedures / Surgeries FT - Procedure History (As Of: 10/25/2023 13:28:42 EDT) Anesthesia Minutes: 0 ; Procedure Name: Colonoscopy ; Procedure Minutes: 0 ; Last Reviewed Dt/Tm: 10/25/2023 13:19:31 EDT Procedure Dt/Tm: 03/27/2008 ; Provider: Duane EVANS MD; Anesthesia Minutes: 0 ; Procedure Name: TRUS/ Bx ; Procedure Minutes: 0 ; Last Reviewed Dt/Tm: 10/25/2023 13:19:31 EDT Anesthesia Minutes: 0 ; Procedure Name: Procedure on knee ; Procedure Minutes: 0 ; Last Reviewed Dt/Tm: 10/25/2023 13:19:31 EDT Procedure Dt/Tm: 10/27/2014 ; Anesthesia Minutes: 0 ; Procedure Name: Arthroscopy of knee ; Procedure Minutes: 0 ; Last Reviewed Dt/Tm: 10/25/2023 13:19:31 EDT Procedure Dt/Tm: 06/16/2022 ; Provider: Duane EVANS MD; Anesthesia Minutes: 0 ; Procedure Name: Transrectal biopsy of prostate using ultrasound (US) guidance ; Procedure Minutes: 0 ; Last Reviewed Dt/Tm: 10/25/2023 13:19:31 EDT Procedure Dt/Tm: 10/13/2022 ; Provider: Yonathan Sutherland MD; Anesthesia Minutes: 0 ; Procedure Name: Right stellate ganglion block ; Procedure Minutes: 0 ; Comments: 10/20/2022 12:35 EDT - Sheryl Daugherty 5% relief ; Last Reviewed Dt/Tm: 10/25/2023 13:19:31 EDT Anesthesia Minutes: 0 ; Procedure Name: Cataract of left eye ; Procedure Minutes: 0 ; Last Reviewed Dt/Tm: 10/25/2023 13:20:21 EDT Anesthesia Minutes: 0 ; Procedure Name: Arthroscopy of knee ; Procedure Minutes: 0 ; Last Reviewed Dt/Tm: 10/25/2023 13:19:31 EDT Procedure Dt/Tm: 11/16/2022 ; Provider: Yonathan Sutherland MD; Anesthesia Minutes: 0 ; Procedure Name: Stellate ganglion block left ; Procedure Minutes: 0 ; Comments: 12/07/2022 13:23 EDT - Daugherty, Sheryl Johnson 0% relief ; Last Reviewed Dt/Tm: 10/25/2023 13:19:31 EDT Procedure Dt/Tm: 11/30/2022 ; Location: [facility] ; Provider: Lynn Griggs MD; Anesthesia Minutes: 0 ; Procedure Name: Colonoscopy ; Procedure Minutes: 0 ; Last Reviewed Dt/Tm: 10/25/2023 13:19:31 EDT Family History Family History (As Of: 10/25/2023 13:28:42 EDT) Grandparent: Relation: Grandparent ; Nomenclature: Malignant neoplasm of colon ; Value: Positive Mother: Relation: Mother ; Gender: Female ; Nomenclature: Heart failure ; Value: Positive Nomenclature: AAA - Abdominal aortic aneurysm ; Value: Positive Father: Relation: Father ; Gender: Male ; Nomenclature: Primary malignant neoplasm of prostate ; Value: Positive Nomenclature: Malignant neoplasm of colon ; Value: Positive Medicare/Medicaid Social History FT Social History (As Of: 10/25/2023 13:28:42 EDT) Alcohol: Denies Alcohol Use Household alcohol concerns: No. Comments: 10/25/2023 13:21 - Lyssa Foreman: denies use (Last Updated: 10/25/2023 13:21:27 EDT by Lyssa Foreman) Tobacco: Former smoker, quit more than 30 days ago Tobacco Use:. Never Smokeless Tobacco Use:. Cigarettes, Stopped age 43 Years. Household tobacco concerns: No. Yes Comments: 10/25/2023 13:20 - Lyssa Foreman: former smoker stopped age 43 (Last Updated: 10/25/2023 13:20:51 EDT by Lyssa Foreman) Substance Abuse: Denies Substance Abuse Comments: 10/25/2023 13:21 - Lyssa Foreman: denies use (Last Updated: 10/25/2023 13:21:04 EDT by Lyssa Foreman) Health Risk Assessment FT HRA little interest or pleasure? : Yes HRA down, depressed, or hopeless? : Yes Lyssa Foreman - 10/25/2023 13:16 EDT Depr (more content not included)... Normal [facility] Comment on above: Result Comment: Elec tronically Signed By: Kyle Daly MD\.br\Date and Time Signed: 10/26/23 10:08 EDT\.br\Electronically Co-Signed By: Lyssa Foreman\.br\Date and Time Co-Signed: 10/25/23 15:42 EDT Ambulatory Visit Summaryon 0 10-25-2023 Ambulatory Visit Summary Ambulatory Visit Summary BRODY HUFFMAN :1950 Visit Date:10/25/2023 Ambulatory Visit Instructions Your Diagnosis Seasonal allergies Elevated PSA History of pulmonary embolus (PE) Polyp of colon Adult BMI 32.0-32.9 kg/sq m Class 1 obesity due to excess calories in adult Former smoker Your Care Team Attending Physician - Kyle Daly MD Primary Care Physician - Kyle Daly MD. This Is Your Medications List acetaminophen ascorbic acid (Vitamin C) ergocalciferol (Vitamin D) finasteride (finasteride 5 mg Tab) melatonin multivitamin (Multi Vitamin+) naproxen omega-3 polyunsaturated fatty acids (Fish Oil 500 mg oral capsule) ubiquinone (Co-Q10) zinc sulfate (Zinc) Procedures Performed Colonoscopy (11/30/2022), Stellate ganglion block using fluoroscopic guidance (11/16/2022), Stellate ganglion block using fluoroscopic guidance (10/13/2022), Transrectal biopsy of prostate using ultrasound (US) guidance (06/16/2022), Arthroscopy of knee (10/27/2014), Transrectal biopsy of prostate using ultrasound (US) guidance (03/27/2008), Arthroscopy of knee, Cataract of left eye, Colonoscopy, Procedure on knee. What to do next Scheduled Follow-Up Appointments Wednesday 8:45 AM EDT With: ABBY ELDER, Duane Evans Where: [facility] [address] [place] [address]- Wednesday 9:15 AM EST With: Addy ELDER, Kyle Walton Where: [address] [address]24 1:00 PM EDT With: Where: [address] [address]- Medications What How Much When Instructions Unchanged acetaminophen 500 Milligram As needed for as needed for pain Unchanged ascorbic acid (Vitamin C) By Mouth Every day Unchanged ergocalciferol (Vitamin D) By Mouth Every day Unchanged finasteride (finasteride 5 mg Tab) 1 Tablets By Mouth Every day Unchanged melatonin 3 Milligram By Mouth Once a day (at bedtime) as needed for as needed for sleep Unchanged multivitamin (Multi Vitamin+) Unchanged naproxen 500 Milligram By Mouth As needed for as needed for pain Unchanged omega-3 polyunsaturated fatty acids (Fish Oil 500 mg oral capsule) 1 Capsules By Mouth Every day Unchanged ubiquinone (Co-Q10) See instructions Oral daily Unchanged zinc sulfate (Zinc) By Mouth Every day Allergies Bactrim (Hives, Unknown) sulfa drugs (Hives, Mild) Problems Ongoing - Any problem that you are currently receiving treatment for. BMI 32.0-32.9,adult BPH with urinary obstruction Elevated PSA Family history of malignant neoplasm of digestive organ Family history of prostate cancer Former smoker Hematuria History of pulmonary embolus (PE) Impotence Long COVID Nocturia Polyp of colon Prostatitis Seasonal allergies Urinary frequency Patient Survey You may receive a survey via text or e-mail asking about your office visit. Please share your experience with us by completing your survey. We appreciate your feedback and thank you for choosing us for your care. Normal [facility] Family Medicine Office/Clini c Noteon 10-25-2023 Family Medicine Office/Clinic Note Family Medicine Office/Clinic Note HPI Staff Brody is a 73 year old male presenting for general follow up AMW done today Will discuss labs with Dr Daly as [facility] and we do not have any results Per [facility] nurse depression screen 7 not a positive but says he's going through some family issues. questions/concerns: still has issues with his voice and shortness of breath and no energy since his bad bout with covid History of Present Illness See staff HPI. - Had a medicare wellness today. - NO other issues. Physical Exam General: alert, no acute distress ENMT: oral mucosa moist, Cardiovascular: regular rate and rhythm, normal peripheral perfusion Respiratory: Lungs CTA, respirations non labored Extremities: no deformity, no trauma Neurological: oriented x 4, LOC appropriate for age, CN II-XII intact, motor strength equal & normal bilaterally, speech normal Abdomen: Soft, Nontender, Non-distended, + BS Assessment/Plan 1. Seasonal allergies (J30.2: Other seasonal allergic rhinitis) No issues currently. Patient has issues in the fall in the spring. Use of medication discussed in detail. 2. Elevated PSA (R97.20: Elevated prostate specific antigen [PSA]) Stable and patient follows with urology. Reviewed labs and discussed in detail. 3. History of pulmonary embolus (PE) (Z86.711: Personal history of pulmonary embolism) No issues at this time. This was during COVID. Patient has some issues with breathing. Discussed using Pulmicort twice daily and seeing if this improves his shortness of breath. 4. Polyp of colon (K63.5: Polyp of colon) Patient has to follow-up in 2 years for recheck. 5. Adult BMI 32.0-32.9 kg/sq m (Z68.32: Body mass index [BMI] 32.0-32.9, adult) BMI education added. 6. Class 1 obesity due to excess calories in adult (E66.09: Other obesity due to excess calories) Diet and exercise advised 7. Former smoker (Z87.891: Personal history of nicotine dependence) Please continue to not smoke. Follow-up No qualifying data available Patient Education BMI for Adults Problem List/Past Medical History Ongoing BMI 32.0-32.9,adult BPH with urinary obstruction Elevated PSA Family history of malignant neoplasm of digestive organ Family history of prostate cancer Former smoker Hematuria History of pulmonary embolus (PE) Impotence Long COVID Nocturia Polyp of colon Prostatitis Seasonal allergies Urinary frequency Historical No qualifying data Procedure/Surgical History Colonoscopy (11/30/2022), Stellate ganglion block using fluoroscopic guidance (11/16/2022), Stellate ganglion block using fluoroscopic guidance (10/13/2022), Transrectal biopsy of prostate using ultrasound (US) guidance (06/16/2022), Arthroscopy of knee (10/27/2014), Transrectal biopsy of prostate using ultrasound (US) guidance (03/27/2008), Arthroscopy of knee, Cataract of left eye, Colonoscopy, Procedure on knee. Medications acetaminophen, 500 mg, PRN Co-Q10, See Instructions finasteride 5 mg Tab, 5 mg= 1 tab(s), Oral, Daily, 11 refills Fish Oil 500 mg oral capsule, 500 mg= 1 cap(s), Oral, Daily melatonin, 3 mg, Oral, Once a day (at bedtime), PRN Multi Vitamin+ naproxen, 500 mg, Oral, PRN Vitamin C, Oral, Daily Vitamin D, Oral, Daily Zinc, Oral, Daily Allergies Bactrim (Hives, Unknown) sulfa drugs (Hives, Mild) Social History Alcohol - Denies Alcohol Use, 05/04/2019 Household alcohol concerns: No., 10/25/2023 Substance Abuse - Denies Substance Abuse, 11/02/2022 Tobacco Former smoker, quit more than 30 days ago Tobacco Use:. Never Smokeless Tobacco Use:. Cigarettes, Stopped age 43 Years. Household tobacco concerns: No. Yes, 10/25/2023 Family History AAA - Abdominal aortic aneurysm: Mother. Heart failure: Mother. Malignant neoplasm of colon: Father and Grandparent. Primary malignant neoplasm of prostate: Father. Immunizations Vaccine Date Status Comments influenza virus vaccine, inactivated - Not Given Patient Refuses pneumococcal 20-valent conjugate vaccine 09/26/2021 Recorded influenza virus vaccine, inactivated 02/05/2020 Recorded zoster vaccine, inactivated 04/22/2019 Recorded zoster vaccine, inactivated 03/22/2019 Recorded influenza virus vaccine, inactivated 02/06/2019 Recorded influenza virus vaccine, inactivated 01/26/2017 Recorded Normal [facility] Comment on above: Result Comment: Elec tronically Signed By: Addy ELDER, Kyle Xavier\Date and Time Signed: 10/25/23 14:10 EDT CBC AUTO DIFFon 08-03-2022 BASO # 0.1 103/ul Normal 0.0-0.1 [facility] Comment on above: Performed By: #### C BC #### [facility] [address] [address] [address] Deanna Cooley Basophils/100 WBC (Bld) 0.6 % Normal 0.2-2.0 [facility] Comment on above: Performed By: #### C BC #### [facility] [address] [address] [address] Deanna Cooley EO # 0.2 103/ul Normal 0.0-0.7 [facility] Comment on above: Performed By: #### C BC #### [facility] [address] [place] [address] Dr. Deanna Cooley Eosinophils/100 WBC (Bld) 1.9 % Normal 0.9-7.0 [facility] Comment on above: Performed By: #### C BC #### [facility] [address] [place] [address] Dr. Deanna Cooley Erythrocyte distribution width (RBC) [Ratio] 12.5 % Normal 11.0-15.0 [facility] Comment on above: Performed By: #### C BC #### [facility] [address] [place] [address] Dr. Deanna Cooley Hematocrit (Bld) [Volume fraction] 41.6 % Critically low 42.0-54.0 [facility] Comment on above: Performed By: #### C BC #### [facility] [address] [place] [address] Dr. Deanna Cooley Hemoglobin (Bld) [Mass/Vol] 13.9 g/dL Critically low 14.0-18.0 [facility] Comment on above: Performed By: #### C BC #### [facility] [address] [place] [address] Dr. Deanna Cooley IG # 0.04 10e3/ul Critically high 0.00-0.03 [facility] Comment on above: Performed By: #### C BC #### [facility] [address] [place] [address] Dr. Deanna Cooley IG % 0.5 % Normal 0.0-0.5 [facility] Comment on above: Performed By: #### C BC #### [facility] [address] [place] [address] Dr. Deanna Cooley LYMPH # 1.8 103/ul Normal 1.2-3.8 [facility] Comment on above: Performed By: #### C BC #### [facility] [address] [place] [address] Dr. Deanna Cooley Lymphocytes/100 WBC (Bld) 21.4 % Normal 20.5-60.0 [facility] Comment on above: Performed By: #### C BC #### [facility] [address] [place] [address] Dr. Deanna Cooley MANUAL DIFF REQ NO Normal [facility] Comment on above: Performed By: #### C BC #### [facility] [address] [place] [address] Dr. Deanna Cooley MCH (RBC) [Entitic mass] 30.5 pg Normal 25.9-34.0 [facility] Comment on above: Performed By: #### C BC #### [facility] [address] [place] [address] Dr. Deanna Cooley MCHC (RBC) [Mass/Vol] 33.4 g/dL Normal 29.9-35.2 [facility] Comment on above: Performed By: #### C BC #### [facility] [address] [place] [address] Dr. Deanna Cooley MCV (RBC) [Entitic vol] 91.2 fL Normal 80.0-94.0 [facility] Comment on above: Performed By: #### C BC #### [facility] [address] [place] [address] Dr. Deanna Cooley MONO # 0.5 103/ul Normal 0.3-0.8 [facility] Comment on above: Performed By: #### C BC #### [facility] [address] [place] [address] Dr. Deanna Cooley Monocytes/100 WBC (Bld) 5.4 % Normal 1.7-12.0 [facility] Comment on above: Performed By: #### C BC #### [facility] [address] [place] [address] Dr. Deanna Cooley NEUT # 6.0 103/ul Normal 1.4-6.5 [facility] Comment on above: Performed By: #### C BC #### [facility] [address] [place] [address] Dr. Deanna Cooley Neutrophils/100 WBC (Bld) 70.2 % Normal 43.0-75.0 [facility] Comment on above: Performed By: #### C BC #### [facility] [address] [place] [address] Dr. Deanna Cooley Platelet mean volume (Bld) [Entitic vol] 8.7 fL Critically low 9.5-13.5 [facility] Comment on above: Performed By: #### C BC #### [facility] [address] [place] [address] Dr. Deanna Cooley PLT 324 103/ul Normal 150-450 [facility] Comment on above: Performed By: #### C BC #### [facility] [address] [place] [address] Dr. Deanna Cooley RBC 4.56 106/ul Critically low 4.70-6.10 [facility] Comment on above: Performed By: #### C BC #### [facility] [address] [place] [address] Dr. Deanna Cooley WBC 8.5 103/ul Normal 4.0-11.0 [facility] Comment on above: Performed By: #### C BC #### [facility] [address] [place] [address] Dr. Deanna Cooley PROF CHEM 8 (BAS METB)on Anion gap [Moles/Vol] 14.4 mmol/L Normal [facility] Comment on above: Performed By: #### B MP #### [facility] [address] [place] [address] Dr. Deanna Cooley Calcium [Mass/Vol] 9.0 mg/dL Normal 8.5-10.1 [facility] Comment on above: Performed By: #### B MP #### [facility] [address] [place] [address] Dr. Deanna Cooley Chloride [Moles/Vol] 105 mmol/L Normal 98-107 [facility] Comment on above: Performed By: #### B MP #### [facility] [address] [address] [address] Deanna Cooley CO2 [Moles/Vol] 25.7 mmol/L Normal 21.0-32.0 [facility] Comment on above: Performed By: #### B MP #### [facility] [address] [place] [address] Dr. Deanna Cooley Creatinine [Mass/Vol] 0.88 mg/dL Normal 0.70-1.30 [facility] Comment on above: Performed By: #### B MP #### [facility] [address] [place] [address] Dr. Deanna Cooley EGFR-AF FRENCH >60 Normal >=60 [facility] Comment on above: Performed By: #### B MP #### [facility] [address] [place] [address] Dr. Deanna Cooley EGFR-NON AF FRENCH >60 Normal >=60 [facility] Comment on above: Performed By: #### B MP #### [facility] [address] [place] [address] Dr. Deanna Cooley Glucose [Mass/Vol] 115 mg/dL Critically high 74-106 [facility] Comment on above: Performed By: #### B MP #### [facility] [address] [place] [address] Dr. Deanna Cooley Potassium [Moles/Vol] 4.1 mmol/L Normal 3.5-5.1 [facility] Comment on above: Performed By: #### B MP #### [facility] [address] [place] [address] Dr. Deanna Cooley Sodium [Moles/Vol] 141 mmol/L Normal 136-145 [facility] Comment on above: Performed By: #### B MP #### [facility] [address] [place] [address] Dr. Deanna Cooley Urea nitrogen [Mass/Vol] 10.0 mg/dL Normal 7.0-18.0 [facility] Comment on above: Performed By: #### B MP #### [facility] [address] [place] [address] Dr. Deanna Cooley Urea nitrogen/Creatinine [Mass ratio] 11.4 mg/mg Normal [facility] Comment on above: Performed By: #### B MP #### [facility] [address] [address] [address] Deanna Cooley SYMPTOMATIC COVID-19 ANTIGEN on 08-03-2022 EUA Statement SEE BELOW Normal [facility] Comment on above: Result Comment: This test has not been FDA cleared or approved, but has been authorized by the FDA under an Emergency Use Authorization (EUA) for use by authorized laboratories certified under CLIA that meet the requirements to perform moderate or high complexity testing. This test has been authorized only for the detection of proteins from SARS-CoV-2, not for any other viruses or pathogens. The emergency use of this test is authorized for the duration of the declaration that circumstances exist justifying the authorization of emergency use of in vitro diagnostic tests for detection and/or diagnosis of Covid-19 under section 564(b)(1) of the Act, 21 U.S.C. 360bbb-3(b)(1), unless the declaration is terminated or authorization is revoked sooner. Performed By: #### C VDAGS #### [facility] [address] [place] [address] Dr. Deanna Cooley SARS-CoV-2 (COVID-19) RNA MARIO+probe Ql (Unsp spec) Positive Abnormal NEGATIVE [facility] Comment on above: Performed By: #### C VDAGS #### [facility] [address] [place] [address] Dr. Deanna Cooley XR CHEST 1 Von 08-03-2022 XR CHEST 1 V EXAM: XR CHEST 1 V HISTORY: Shortness of breath. COMPARISON: 02/04/2021. TECHNIQUE: AP erect portable chest radiograph performed. FINDINGS: The trachea is unremarkable. The cardiac silhouette is upper limits normal size and stable. There is mild atheromatous calcification at the aortic arch. The lung volumes are diminished. There are mild patchy densities at both lung bases suggesting atelectasis and/or infiltrate. There is no pleural effusion or pulmonary vascular congestion. There is no pneumothorax. There are moderately severe degenerative changes at the left glenohumeral articulation. IMPRESSION: Expiratory chest with mild patchy densities at both lung bases suggesting atelectasis and/or infiltrates. Electronically authenticated by: RANCHO RICHEY Date: 2022-08-03 10:23 Normal [facility] CHEMISTRYOrdered By: SYSTEM SYSTEM on 05-29-2022 Prostate specific Ag [Mass/Vol] 5.1 ng/mL High 0.1 - 3.5 ng/mL [facility] [place] Remisol Covid-19 PCR (CVDTB)on 01-20 SARS-CoV-2 (COVID-19) RNA MARIO+probe Ql (Unsp spec) Not detected Normal NOT DETECTED [facility] Comment on above: Result Comment: This test is not yet approved or cleared by the [place] FDA. When there are no FDA-approved or cleared tests available, and other criteria are met, FDA can make tests available under an emergency access mechanism called an Emergency Use Authorization (EUA). The EUA for this test is supported by the [place] of Health and Human Service's (HHS's) declaration that circumstances exist to justify the emergency use of in vitro diagnostics for the detection and/or diagnosis of the virus that causes COVID-19. This EUA will remain in effect (meaning this test can be used) for the duration of the COVID-19 declaration justifying emergency of IVDs, unless it is terminated or revoked by FDA (after which the test may no longer be used). When diagnostic testing is negative, the possibility of a false negative should be considered in the context of a patient's recent exposures and the presence of clinical signs and symptoms consistent with SARS-CoV-2. Performed By: #### C VDTB #### [facility] [address] [place] [address] Dr. Deanna Cooley Vital Signs Date Time Vital Sign Value Performing Clinician Facility 12-27-2023 09:07-0400 Diastolic blood pressure 90 mm[Hg] Duane EVANS [facility] 12-27-2023 09:07-0400 Mean blood pressure 109 mm[Hg] Duane EVANS [facility] 12-27-2023 09:07-0400 Systolic blood pressure 148 mm[Hg] Duane EVANS [facility] 12-27-2023 08:55-0400 Blood Pressure Location Duane EVANS [facility] 12-27-2023 08:55-0400 Diastolic blood pressure 90 mm[Hg] Duane EVANS [facility] 12-27-2023 08:55-0400 Heart rate 69 /min Duane EVANS [facility] 12-27-2023 08:55-0400 Respiratory rate 16 /min Duane EVANS [facility] 12-27-2023 08:55-0400 Systolic blood pressure 148 mm[Hg] Duane EVANS [facility] 12-14-2022 08:45-0400 Blood Pressure Location Bailey Sarmini [facility] 12-14-2022 08:45-0400 Body temperature 98.06 [degF] Bailey Sarmini [facility] 12-14-2022 08:45-0400 Diastolic blood pressure 76 mm[Hg] Bailey Sarmini [facility] 12-14-2022 08:45-0400 Heart rate 72 /min Bailey Sarmini [facility] 12-14-2022 08:45-0400 Respiratory rate 16 /min Bailey Sarmini [facility] 12-14-2022 08:45-0400 Systolic blood pressure 135 mm[Hg] Bailey Sarmini [facility] 11-30-2022 14:47-0400 Diastolic blood pressure 81 mm[Hg] Bailey Sarmini [facility] 11-30-2022 14:47-0400 Heart rate 59 /min Bailey Sarmini [facility] 11-30-2022 14:47-0400 Respiratory rate 15 /min Bailey Sarmini [facility] 11-30-2022 14:47-0400 SaO2% (BldA) [Mass fraction] 96 % Bailey Sarmini [facility] 11-30-2022 14:47-0400 Systolic blood pressure 122 mm[Hg] Bailey Sarmini [facility] 11-30-2022 14:35-0400 Diastolic blood pressure 79 mm[Hg] Bailey Sarmini [facility] 11-30-2022 14:35-0400 Heart rate 65 /min Bailey Sarmini [facility] 11-30-2022 14:35-0400 Respiratory rate 16 /min Bailey Sarmini [facility] 11-30-2022 14:35-0400 SaO2% (BldA) [Mass fraction] 96 % Bailey Sarmini [facility] 11-30-2022 14:35-0400 Systolic blood pressure 117 mm[Hg] Bailey Sarmini [facility] 11-30-2022 14:30-0400 Diastolic blood pressure 75 mm[Hg] Bailey Sarmini [facility] 11-30-2022 14:30-0400 Heart rate 65 /min Bailey Sarmini [facility] 11-30-2022 14:30-0400 Respiratory rate 15 /min Bailey Sarmini [facility] 11-30-2022 14:30-0400 SaO2% (BldA) [Mass fraction] 97 % Bailey Sarmini [facility] 11-30-2022 14:30-0400 Systolic blood pressure 117 mm[Hg] Bailey Sarmini [facility] 11-30-2022 14:22-0400 Body temperature 97.88 [degF] Bailey Sarmini [facility] 11-30-2022 14:15-0400 Respiratory rate 15 /min Bailey Sarmini [facility] 11-30-2022 14:10-0400 Respiratory rate 15 /min Bailey Sarmini [facility] 11-30-2022 14:05-0400 Respiratory rate 16 /min Bailey Sarmini [facility] 11-30-2022 12:44-0400 Blood Pressure Location Bailey Sarmini [facility] 11-30-2022 12:00-0400 Body temperature 96.8 [degF] Bailey Sarmini [facility] 11-16-2022 13:47-0400 Heart rate 66 /min Yonathan Koko [facility] 11-16-2022 13:47-0400 SaO2% (BldA) [Mass fraction] 99 % Yonathan Koko [facility] 11-16-2022 13:47-0400 Diastolic blood pressure 93 mm[Hg] Yonathan Koko [facility] 11-16-2022 13:47-0400 Mean blood pressure 115 mm[Hg] Yonathan Koko [facility] 11-16-2022 13:47-0400 Systolic blood pressure 160 mm[Hg] Yonathan Koko [facility] 11-16-2022 13:38-0400 Heart rate 65 /min Yonathan Koko [facility] 11-16-2022 13:38-0400 SaO2% (BldA) [Mass fraction] 97 % Yonathan Koko [facility] 11-16-2022 13:38-0400 Respiratory rate 16 /min Yonathan Koko [facility] 11-16-2022 13:37-0400 Diastolic blood pressure 103 mm[Hg] Yonathan Koko [facility] 11-16-2022 13:37-0400 Mean blood pressure 124 mm[Hg] Yonathan Koko [facility] 11-16-2022 13:37-0400 Systolic blood pressure 165 mm[Hg] Yonathan Koko [facility] 11-16-2022 13:28-0400 Diastolic blood pressure 100 mm[Hg] Yonathan Koko [facility] 11-16-2022 13:28-0400 Heart rate 67 /min Yonathan Sutherland [facility] 11-16-2022 13:28-0400 Respiratory rate 16 /min Yonathan Sutherland [facility] 11-16-2022 13:28-0400 SaO2% (BldA) [Mass fraction] 99 % Yonathan Sutherland [facility] 11-16-2022 13:28-0400 Systolic blood pressure 167 mm[Hg] Yonathan Sutherland [facility] 11-16-2022 13:20-0400 Respiratory rate 14 /min Yonathan Sutherland [facility] 11-16-2022 12:54-0400 Mean blood pressure 100 mm[Hg] Yonathan Sutherland [facility] 11-16-2022 12:54-0400 Body temperature 97.7 [degF] Yonathan Sutherland [facility] 11-02-2022 10:22-0400 Blood Pressure Location Bailey Sarmini [facility] 11-02-2022 10:22-0400 Diastolic blood pressure 84 mm[Hg] Bailey Sarmini [facility] 11-02-2022 10:22-0400 Heart rate 62 /min Bailey Sarmini [facility] 11-02-2022 10:22-0400 Respiratory rate 16 /min Bailey Sarmini [facility] 11-02-2022 10:22-0400 SaO2% (BldA) [Mass fraction] 98 % Bailey Sarmini [facility] 11-02-2022 10:22-0400 Systolic blood pressure 137 mm[Hg] Lynn Palmeri [facility] 10-20-2022 12:30-0400 Diastolic blood pressure 87 mm[Hg] Yonathan Koko [facility] 10-20-2022 12:30-0400 Heart rate 74 /min Yonathan Koko [facility] 10-20-2022 12:30-0400 Mean blood pressure 105 mm[Hg] Yonathan Koko [facility] 10-20-2022 12:30-0400 Respiratory rate 14 /min Yonathan Koko [facility] 10-20-2022 12:30-0400 Systolic blood pressure 141 mm[Hg] Yonathan Koko [facility] 09-21-2022 09:41-0400 Diastolic blood pressure 94 mm[Hg] Yonathan Koko [facility] 09-21-2022 09:41-0400 Heart rate 85 /min Yonathan Koko [facility] 09-21-2022 09:41-0400 Mean blood pressure 117 mm[Hg] Yonathan Koko [facility] 09-21-2022 09:41-0400 Respiratory rate 20 /min Yonathan Koko [facility] 09-21-2022 09:41-0400 Systolic blood pressure 162 mm[Hg] Yonathan Koko [facility] 06-29-2022 10:37-0400 Blood Pressure Location Duane EVANS [facility] 06-29-2022 10:37-0400 Diastolic blood pressure 89 mm[Hg] Duane EVANS [facility] 06-29-2022 10:37-0400 Heart rate 77 /min Duane EVANS [facility] 06-29-2022 10:37-0400 Respiratory rate 16 /min Duane EVANS [facility] 06-29-2022 10:37-0400 Systolic blood pressure 140 mm[Hg] Duane EVANS [facility] 05-29-2022 08:05-0500 Blood Pressure Location Duane EVANS [facility] 05-29-2022 08:05-0500 Diastolic blood pressure 74 mm[Hg] Duane EVANS [facility] 05-29-2022 08:05-0500 Heart rate 70 /min Duane EVANS [facility] 05-29-2022 08:05-0500 Systolic blood pressure 134 mm[Hg] Duane EVANS [facility] Encounters Encounter Date Encounter Type Care Provider Facility Start: 01-17-2024 End: 01-17-2024 ambulatory Kyle Daly Facility:[facility] Start: 12-27-2023 End: 12-27-2023 ambulatory Duane EVANS Facility:[facility] Start: 12-27-2023 End: 12-27-2023 Patient encounter procedure Duane EVANS [facility] Start: 10-25-2023 End: 10-25-2023 ambulatory Kyle Daly Facility:[facility] Start: 09-21-2023 End: 09-21-2023 ambulatory LIAN MONTENEGRO Not Available Start: 12-14-2022 End: 12-14-2022 Patient encounter procedure Bailey Talal Sarmini [facility] Start: 11-30-2022 End: 11-30-2022 Patient encounter procedure Bailey Talal Emilemini [facility] Start: 11-16-2022 End: 11-16-2022 Pain Management Yonathan Sutherland [facility] Start: 11-02-2022 End: 11-02-2022 Patient encounter procedure Bailey Talal Emilemini [facility] Start: 10-20-2022 End: 10-20-2022 Pain Management Yonathan Sutherland [facility] Start: 09-21-2022 End: 09-21-2022 Pain Management Yonathan Sutherland [facility] Start: 08-03-2022 End: 08-03-2022 ambulatory SHERRY RICKETTS . Facility: Start: 06-29-2022 End: 06-29-2022 Patient encounter procedure Duane EVANS [facility] Start: 06-16-2022 End: 06-16-2022 Patient encounter procedure Duane EVANS [facility] Start: 05-29-2022 End: 05-29-2022 Lab Drop off Duane EVANS [facility] Start: 05-29-2022 End: 05-29-2022 Patient encounter procedure Duane EVANS [facility] Start: 05-25-2022 End: 05-26-[address] SOCORRO MAN . Facility: Start: 01-30-2022 End: 01-30-[address] SOCORRO MAN . Facility: Procedures Date Procedure Procedure Detail Performing Clinician Start: 11-30-2022 Colonoscopy Lynn reid Start: 11-16-2022 Stellate ganglion bl ock using fluoroscopic guidance Lynn Griggs Comment on above: 0% relief Start: 10-13-2022 Stellate ganglion bl ock using fluoroscopic guidance Yonathan Sutherland Comment on above: 5% relief Start: 06-16-2022 Transrectal biopsy o f prostate using ultrasound guidance Duane EVANS Start: 05-25-2022 PSA screening SHERRY SAAB . Comment on above: Performed By: #### P SAD #### [facility] [address] [place] [address] Dr. Deanna Cooley Start: 10-27-2014 Arthroscopy of knee Sejal EVANS Start: 03-27-2008 Transrectal biopsy o f prostate using ultrasound guidance Duane EVANS Arthroscopy of knee Duane EVANS Arthroscopy of knee Duane EVANS Cataract (disorder) Duane EVANS Cataract of left eye Duane EVANS Colonoscopy Duane EVANS Procedure on knee Duane SUE KVNG Plan of Treatment Date Care Activity Detail Author Start: 12-29-2024 ambulatory Ambulatory Facility:Tiffany Earl Start: 10-26-2024 ambulatory Ambulatory Facility:Kim Earl Start: 04-24-2024 ambulatory Ambulatory Facility:[facility] Artem CORREA Mady Immunizations Immunization Date Immunization Notes Care Provider Scott quesada 09-26-2021 pneumococcal 20-liberty nt conjugate vaccine Duane EVANS [facility] 02-05-2020 influenza virus vaccine, unspecified formulation Duane EVANS [facility] 04-22-2019 zoster vaccine recombinant Bailey Sarmini [facility] 03-22-2019 zoster vaccine recombinant Bailey Sarmini [facility] 02-06-2019 influenza virus vaccine, unspecified formulation Duane ABBY [facility] 01-26-2017 influenza virus vaccine, unspecified formulation Duanefelisa EVANS [facility] NEGATED: Highlighted row has not occurred!12-14-2022 influenza virus vaccine, unspecified formulation Bailey Sarmini [facility] Payers Date Payer Category Payer Medicare [id number] 1957 Unknown [id number] 1950 Unknown [id number] 2.16.84 [id number] 1950 Unknown [id number] 2.16.84 [id number] 1950 Unknown [id number] 2.16.84 [id number] 1952 Unknown [id number] 2.16.84 [id number] 1952 Unknown [id number] 2.16.8 [id number] 1950 Unknown [id number] 2.16.8 [id number] 1952 Unknown [id number] 2.16.8 [id number] 1952 Unknown [id number] 2.16.8 [id number] 1950 Unknown [id number] 2.16.8 [id number] 1952 Unknown [id number] 2.16.8 [id number] 1950 Unknown [id number] 2.16.8 [id number] Social History Date Type Detail Facility Start: 05-29-2022 End: 12-27-2023 Tobacco smoking status Ex-smoker (finding) [facility] Comment on above: former smoker stoppe d age 43 Sex Assigned At Male [facility] Tobacco smoking status Never [facility] Comment on above: former smoker stoppe d age 43 Functional Status Date Assessment Result Facility 12-27-2023 Functional Status N/A [facility] 12-14-2022 Functional Status N/A [facility] 11-30-2022 Functional Status N/A [facility] 11-16-2022 Functional Status N/A [facility] 11-02-2022 Functional Status N/A [facility] 10-20-2022 Functional Status N/A [facility] 09-21-2022 Functional Status N/A [facility] 06-29-2022 Functional Status N/A [facility] 06-10-2022 Functional Status N/A [facility] 05-29-2022 Functional Status N/A [facility] Clinical Notes 05-29-2022 to 12-27-2023 Note Date & Type Note Facility 12-27-2023 Hospital Discharge instructions Patient Education 12/27/2023 09:36:28 Prostate Cancer Screening Prostate Cancer Screening Prostate cancer screening is testing that is done to check for the presence of prostate cancer in men. The prostate gland is a walnut-sized gland that is located below the bladder and in front of the rectum in males. The function of the prostate is to add fluid to semen during ejaculation. Prostate cancer is one of the most common types of cancer in men. Who should have prostate cancer screening? Screening recommendations vary based on age and other risk factors, as well as between the professional organizations who make the recommendations. In general, screening is recommended if: You are age 50 to 70 and have an average risk for prostate cancer. You should talk with your health care provider about your need for screening and how often screening should be done. Because most prostate cancers are slow growing and will not cause , screening in this age group is generally reserved for men who have a 10- to 15-year life expectancy. You are younger than age 50, and you have these risk factors: ?Having a father, brother, or uncle who has been diagnosed with prostate cancer. The risk is higher if your family member's cancer occurred at an early age or if you have multiple family members with prostate cancer at an early age. ?Being a male who is Black or is of [place] or sub-Saharan descent. In general, screening is not recommended if: You are younger than age 40. You are between the ages of 40 and 49 and you have no risk factors. You are 70 years of age or older. At this age, the risks that screening can cause are greater than the benefits that it may provide. If you are at high risk for prostate cancer, your health care provider may recommend that you have screenings more often or that you start screening at a younger age. How is screening for prostate cancer done? The recommended prostate cancer screening test is a blood test called the prostate-specific antigen (PSA) test. PSA is a protein that is made in the prostate. As you age, your prostate naturally produces more PSA. Abnormally high PSA levels may be caused by: Prostate cancer. An enlarged prostate that is not caused by cancer (benign prostatic hyperplasia, or BPH). This condition is very common in older men. A prostate gland infection (prostatitis) or urinary tract infection. Certain medicines such as male hormones (like testosterone) or other medicines that raise testosterone levels. A rectal exam may be done as part of prostate cancer screening to help provide information about the size of your prostate gland. When a rectal exam is performed, it should be done after the PSA level is drawn to avoid any effect on the results. Depending on the PSA results, you may need more tests, such as: A physical exam to check the size of your prostate gland, if not done as part of screening. Blood and imaging tests. A procedure to remove tissue samples from your prostate gland for testing (biopsy). This is the only way to know for certain if you have prostate cancer. What are the benefits of prostate cancer screening? Screening can help to identify cancer at an early stage, before symptoms start and when the cancer can be treated more easily. There is a small chance that screening may lower your risk of dying from prostate cancer. The chance is small because prostate cancer is a slow-growing cancer, and most men with prostate cancer from a different cause. What are the risks of prostate cancer screening? The main risk of prostate cancer screening is diagnosing and treating prostate cancer that would never have caused any symptoms or problems. This is called overdiagnosisand overtreatment. PSA screening cannot tell you if your PSA is high due to cancer or a different cause. A prostate biopsy is the only procedure to diagnose prostate cancer. Even the results of a biopsy may not tell you if your cancer needs to be treated. Slow-growing prostate cancer may not need any treatment other than monitoring, so diagnosing and treating it may cause unnecessary stress or other side effects. Questions to ask your health care provider When should I start prostate cancer screening? What is my risk for prostate cancer? How often do I need screening? What type of screening tests do I need? How do I get my test results? What do my results mean? Do I need treatment? Where to find more information The [place] [employer]: www.cancer.org [place] [employer]: www.auanet.org Contact a health care provider if: You have difficulty urinating. You have pain when you urinate or ejaculate. You have blood in your urine or semen. You have pain in your back or in the area of your prostate. Summary Prostate cancer is a common type of cancer in men. The prostate gland is located below the bladder and in front of the rectum. This gland adds fluid to semen during ejaculation. Prostate cancer screening may identify cancer at an early stage, when the cancer can be treated more easily and is less likely to have spread to other areas of the body. The prostate-specific antigen (PSA) test is the recommended screening test for prostate cancer, but it has associated risks. Discuss the risks and benefits of prostate cancer screening with your health care provider. If you are age 70 or older, the risks that screening can cause are greater than the benefits that it may provide. This information is not intended to replace advice given to you by your health care provider. Make sure you discuss any questions you have with your health care provider. Document Revised: 09/01/2021 Document Reviewed: 09/01/2021 [employer] Patient Education 2023 [employer]. Follow Up Care 12/28/2022 09:41:18 With:ABBY ELDER, Duane Evans, URL Address: [facility] [address] , [place] [address]- [phone] When: Unknown Comments:3 yr w/ PSA [facility] 12-27-2023 Note Patient Education Oncology Prostate Cancer Screening Prostate cancer screening is testing that is done to check for the presence of prostate cancer in men. The prostate gland is a walnut-sized gland that is located below the bladder and in front of the rectum in males. The function of the prostate is to add fluid to semen during ejaculation. Prostate cancer is one of the most common types of cancer in men. Who should have prostate cancer screening? Screening recommendations vary based on age and other risk factors, as well as between the professional organizations who make the recommendations. In general, screening is recommended if: ? You are age 50 to 70 and have an average risk for prostate cancer. You should talk with your health care provider about your need for screening and how often screening should be done. Because most prostate cancers are slow growing and will not cause , screening in this age group is generally reserved for men who have a 10- to 15-year life expectancy. ? You are younger than age 50, and you have these risk factors: ? Having a father, brother, or uncle who has been diagnosed with prostate cancer. The risk is higher if your family member's cancer occurred at an early age or if you have multiple family members with prostate cancer at an early age. ? Being a male who is Black or is of [place] or sub-Saharan descent. In general, screening is not recommended if: ? You are younger than age 40. ? You are between the ages of 40 and 49 and you have no risk factors. ? You are 70 years of age or older. At this age, the risks that screening can cause are greater than the benefits that it may provide. If you are at high risk for prostate cancer, your health care provider may recommend that you have screenings more often or that you start screening at a younger age. How is screening for prostate cancer done? The recommended prostate cancer screening test is a blood test called the prostate-specific antigen (PSA) test. PSA is a protein that is made in the prostate. As you age, your prostate naturally produces more PSA. Abnormally high PSA levels may be caused by: ? Prostate cancer. ? An enlarged prostate that is not caused by cancer (benign prostatic hyperplasia, or BPH). This condition is very common in older men. ? A prostate gland infection (prostatitis) or urinary tract infection. ? Certain medicines such as male hormones (like testosterone) or other medicines that raise testosterone levels. A rectal exam may be done as part of prostate cancer screening to help provide information about the size of your prostate gland. When a rectal exam is performed, it should be done after the PSA level is drawn to avoid any effect on the results. Depending on the PSA results, you may need more tests, such as: ? A physical exam to check the size of your prostate gland, if not done as part of screening. ? Blood and imaging tests. ? A procedure to remove tissue samples from your prostate gland for testing (biopsy). This is the only way to know for certain if you have prostate cancer. What are the benefits of prostate cancer screening? ? Screening can help to identify cancer at an early stage, before symptoms start and when the cancer can be treated more easily. ? There is a small chance that screening may lower your risk of dying from prostate cancer. The chance is small because prostate cancer is a slow-growing cancer, and most men with prostate cancer from a different cause. What are the risks of prostate cancer screening? The main risk of prostate cancer screening is diagnosing and treating prostate cancer that would never have caused any symptoms or problems. This is called overdiagnosisand overtreatment. PSA screening cannot tell you if your PSA is high due to cancer or a different cause. A prostate biopsy is the only procedure to diagnose prostate cancer. Even the results of a biopsy may not tell you if your cancer needs to be treated. Slow-growing prostate cancer may not need any treatment other than monitoring, so diagnosing and treating it may cause unnecessary stress or other side effects. Questions to ask your health care provider ? When should I start prostate cancer screening? ? What is my risk for prostate cancer? ? How often do I need screening? ? What type of screening tests do I need? ? How do I get my test results? ? What do my results mean? ? Do I need treatment? Where to find more information ? The [place] [employer]: www.cancer.org ? [place] [employer]: www.auanet.org Contact a health care provider if: ? You have difficulty urinating. ? You have pain when you urinate or ejaculate. ? You have blood in your urine or semen. ? You have pain in your back or in the area of your prostate. Summary ? Prostate cancer is a common type of cancer in men. The prostate gland is located below the bladder and in front of the rectum. (more content not included)... [facility] 10-25-2023 Note Patient Education Nutrition BMI for Adults What is BMI? Body mass index (BMI) is a number that is calculated from a person's weight and height. BMI can help estimate how much of a person's weight is composed of fat. BMI does not measure body fat directly. Rather, it is an alternative to procedures that directly measure body fat, which can be difficult and expensive. BMI can help identify people who may be at higher risk for certain medical problems. What are BMI measurements used for? BMI is used as a screening tool to identify possible weight problems. It helps determine whether a person is obese, overweight, a healthy weight, or underweight. BMI is useful for: ? Identifying a weight problem that may be related to a medical condition or may increase the risk for medical problems. ? Promoting changes, such as changes in diet and exercise, to help reach a healthy weight. BMI screening can be repeated to see if these changes are working. How is BMI calculated? BMI involves measuring your weight in relation to your height. Both height and weight are measured, and the BMI is calculated from those numbers. This can be done either in [place] or metric measurements. Note that charts and online BMI calculators are available to help you find your BMI quickly and easily without having to do these calculations yourself. To calculate your BMI in [place] measurements: 1. Measure your weight in pounds (lb). 2. Multiply the number of pounds by 703. ? For example, for a person who weighs 180 lb, multiply that number by 703, which equals 126,540. 3. Measure your height in inches. Then multiply that number by itself to get a measurement called inches squared. ? For example, for a person who is 70 inches tall, the inches squared measurement is 70 inches x 70 inches, which equals 4,900 inches squared. 4. Divide the total from step 2 (number of lb x 703) by the total from step 3 (inches squared): 126,540 ? 4,900 = 25.8. This is your BMI. To calculate your BMI in metric measurements: 1. Measure your weight in kilograms (kg). 2. Measure your height in meters (m). Then multiply that number by itself to get a measurement called meters squared. ? For example, for a person who is 1.75 m tall, the meters squared measurement is 1.75 m x 1.75 m, which is equal to 3.1 meters squared. 3. Divide the number of kilograms (your weight) by the meters squared number. In this example: 70 ? 3.1 = 22.6. This is your BMI. What do the results mean? BMI charts are used to identify whether you are underweight, normal weight, overweight, or obese. The following guidelines will be used: ? Underweight: BMI less than 18.5. ? Normal weight: BMI between 18.5 and 24.9. ? Overweight: BMI between 25 and 29.9. ? Obese: BMI of 30 or above. Keep these notes in mind: ? Weight includes both fat and muscle, so someone with a muscular build, such as an athlete, may have a BMI that is higher than 24.9. In cases like these, BMI is not an accurate measure of body fat. ? To determine if excess body fat is the cause of a BMI of 25 or higher, further assessments may need to be done by a health care provider. ? BMI is usually interpreted in the same way for men and women. Where to find more information For more information about BMI, including tools to quickly calculate your BMI, go to these websites: ? Centers for Disease Control and Prevention: www.cdc.gov ? [place] [employer]: www.heart.org ? National Heart, Lung, and Blood [place]: www.nhlbi.nih.gov Summary ? Body mass index (BMI) is a number that is calculated from a person's weight and height. ? BMI may help estimate how much of a person's weight is composed of fat. BMI can help identify those who may be at higher risk for certain medical problems. ? BMI can be measured using [place] measurements or metric measurements. ? BMI charts are used to identify whether you are underweight, normal weight, overweight, or obese. This information is not intended to replace advice given to you by your health care provider. Make sure you discuss any questions you have with your health care provider. Document Revised: 11/29/2019 Document Reviewed: 10/06/2019 [employer] Patient Education ? 2022 [employer]. Physical Medicine and Rehabilitation Health Maintenance After Age 65 After age 65, you are at a higher risk for certain long-term diseases and infections as well as injuries from falls. Falls are a major cause of broken bones and head injuries in people who are older than age 65. Getting regular preventive care can help to keep you healthy and well. Preventive care includes getting regular testing and making lifestyle changes as recommended by your health care provider. Talk with your health care provider about: ? Which screenings and tests you should have. A screening is a test that checks for a disease when you have no symptoms. ? A diet and exercise plan that (more content not included)... [facility] 10-25-2023 Note Patient Education Nutrition BMI for Adults What is BMI? Body mass index (BMI) is a number that is calculated from a person's weight and height. BMI can help estimate how much of a person's weight is composed of fat. BMI does not measure body fat directly. Rather, it is an alternative to procedures that directly measure body fat, which can be difficult and expensive. BMI can help identify people who may be at higher risk for certain medical problems. What are BMI measurements used for? BMI is used as a screening tool to identify possible weight problems. It helps determine whether a person is obese, overweight, a healthy weight, or underweight. BMI is useful for: ? Identifying a weight problem that may be related to a medical condition or may increase the risk for medical problems. ? Promoting changes, such as changes in diet and exercise, to help reach a healthy weight. BMI screening can be repeated to see if these changes are working. How is BMI calculated? BMI involves measuring your weight in relation to your height. Both height and weight are measured, and the BMI is calculated from those numbers. This can be done either in [place] or metric measurements. Note that charts and online BMI calculators are available to help you find your BMI quickly and easily without having to do these calculations yourself. To calculate your BMI in [place] measurements: 1. Measure your weight in pounds (lb). 2. Multiply the number of pounds by 703. ? For example, for a person who weighs 180 lb, multiply that number by 703, which equals 126,540. 3. Measure your height in inches. Then multiply that number by itself to get a measurement called inches squared. ? For example, for a person who is 70 inches tall, the inches squared measurement is 70 inches x 70 inches, which equals 4,900 inches squared. 4. Divide the total from step 2 (number of lb x 703) by the total from step 3 (inches squared): 126,540 ? 4,900 = 25.8. This is your BMI. To calculate your BMI in metric measurements: 1. Measure your weight in kilograms (kg). 2. Measure your height in meters (m). Then multiply that number by itself to get a measurement called meters squared. ? For example, for a person who is 1.75 m tall, the meters squared measurement is 1.75 m x 1.75 m, which is equal to 3.1 meters squared. 3. Divide the number of kilograms (your weight) by the meters squared number. In this example: 70 ? 3.1 = 22.6. This is your BMI. What do the results mean? BMI charts are used to identify whether you are underweight, normal weight, overweight, or obese. The following guidelines will be used: ? Underweight: BMI less than 18.5. ? Normal weight: BMI between 18.5 and 24.9. ? Overweight: BMI between 25 and 29.9. ? Obese: BMI of 30 or above. Keep these notes in mind: ? Weight includes both fat and muscle, so someone with a muscular build, such as an athlete, may have a BMI that is higher than 24.9. In cases like these, BMI is not an accurate measure of body fat. ? To determine if excess body fat is the cause of a BMI of 25 or higher, further assessments may need to be done by a health care provider. ? BMI is usually interpreted in the same way for men and women. Where to find more information For more information about BMI, including tools to quickly calculate your BMI, go to these websites: ? Centers for Disease Control and Prevention: www.cdc.gov ? [place] [employer]: www.heart.org ? National Heart, Lung, and Blood [place]: www.nhlbi.nih.gov Summary ? Body mass index (BMI) is a number that is calculated from a person's weight and height. ? BMI may help estimate how much of a person's weight is composed of fat. BMI can help identify those who may be at higher risk for certain medical problems. ? BMI can be measured using [place] measurements or metric measurements. ? BMI charts are used to identify whether you are underweight, normal weight, overweight, or obese. This information is not intended to replace advice given to you by your health care provider. Make sure you discuss any questions you have with your health care provider. Document Revised: 11/29/2019 Document Reviewed: 10/06/2019 [employer] Patient Education ? 2022 [employer]. [facility] 11-30-2022 Hospital Discharge instructions Patient Education 11/30/2022 14:26:18 Colonoscopy, Care After Surgery [facility] (CUSTOM) Colonoscopy Care After Surgery Please read the instructions outlined below and refer to this sheet in the next few weeks. These discharge instructions provide you with general information on caring for yourself after you leave the hospital. Your doctor may also give you specific instructions. While your treatment has been planned according to the most current medical practices available, unavoidable complications occasionally occur. If you have any problems or questions after discharge, please call your doctor. ACTIVITY You may resume your regular activity, but move at a slower pace for the next 24 hours. Take frequent rest periods for the next 24 hours. Walking will help get rid of the air and reduce the bloated feeling in your abdomen (belly). No driving for 24 hours (because of the anesthesia (medicine) used during the test). You may shower. Do not sign any important legal documents or operate any machinery for 24 hours (because of the anesthesia used during the test). NUTRITION Drink plenty of fluids. You may resume your normal diet as instructed by your doctor. Begin with a light meal and progress to your normal diet. Heavy or fried foods are harder to digest and may make you feel nauseated (sick to your stomach). Avoid alcoholic beverages for 24 hours or as instructed. MEDICATIONS You may resume your normal medications unless your doctor tells you otherwise. WHAT YOU CAN EXPECT TODAY Some feelings of bloating in the abdomen. Passage of more gas than usual. Spotting of blood in your stool or on the toilet paper. FOLLOW-UP Your doctor will discuss the results of your test with you. SEEK IMMEDIATE MEDICAL ATTENTION IF: There is more than a spotting of blood in your stool. There is abdominal distention (your abdomen is swollen). There is vomiting. You have a temperature over 101.5 F. There is abdominal pain or discomfort that is severe or gets worse throughout the day. 11/30/2022 14:26:10 Colon Polyps Colon Polyps Colon polyps are tissue growths inside the colon, which is part of the large intestine. They are one of the types of polyps that can grow in the body. A polyp may be a round bump or a mushroom-shaped growth. You could have one polyp or more than one. Most colon polyps are noncancerous (benign). However, some colon polyps can become cancerous over time. Finding and removing the polyps early can help prevent this. What are the causes? The exact cause of colon polyps is not known. What increases the risk? The following factors may make you more likely to develop this condition: Having a family history of colorectal cancer or colon polyps. Being older than 45 years of age. Being younger than 45 years of age and having a significant family history of colorectal cancer or colon polyps or a genetic condition that puts you at higher risk of getting colon polyps. Having inflammatory bowel disease, such as ulcerative colitis or Crohn's disease. Having certain conditions passed from parent to child (hereditary conditions), such as: ?Familial adenomatous polyposis (FAP). ?Banegas syndrome. ?Turcot syndrome. ?Peutz Jeghers syndrome. ?MUTYH-associated polyposis (MAP). Being overweight. Certain lifestyle factors. These include smoking cigarettes, drinking too much alcohol, not getting enough exercise, and eating a diet that is high in fat and red meat and low in fiber. Having had childhood cancer that was treated with radiation of the abdomen. What are the signs or symptoms? Many times, there are no symptoms. If you have symptoms, they may include: Blood coming from the rectum during a bowel movement. Blood in the stool (feces). The blood may be bright red or very dark in color. Pain in the abdomen. A change in bowel habits, such as constipation or diarrhea. How is this diagnosed? This condition is diagnosed with a colonoscopy. This is a procedure in which a lighted, flexible scope is inserted into the opening between the buttocks (anus) and then passed into the colon to examine the area. Polyps are sometimes found when a colonoscopy is done as part of routine cancer screening tests. How is this treated? This condition is treated by removing any polyps that are found. Most polyps can be removed during a colonoscopy. Those polyps will then be tested for cancer. Additional treatment may be needed depending on the results of testing. Follow these instructions at home: Eating and drinking Eat foods that are high in fiber, such as fruits, vegetables, and whole grains. Eat foods that are high in calcium and vitamin D, such as milk, cheese, yogurt, eggs, liver, fish, and broccoli. Limit foods that are high in fat, such as fried foods and desserts. Limit the amount of red meat, precooked or cured meat, or other processed meat that you eat, such as hot dogs, sausages, agrawal, or meat loaves. Limit sugary drinks. Lifestyle Maintain a healthy weight, or lose weight if recommended by your health care provider. Exercise every day or as told by your health care provider. Do not use any products that contain nicotine or tobacco, such as cigarettes, e-cigarettes, and chewing tobacco. If you need help quitting, ask your health care provider. Do not drink alcohol if: ?Your health care provider tells you not to drink. ?You are , may be , or are planning to become . If you drink alcohol: ?Limit how much you use to: ?0 1 drink a day for women. ?0 2 drinks a day for men. ?Know how much alcohol is in your drink. In the [place] one drink equals one 12 oz bottle of beer (355 mL), one 5 oz glass of wine (148 mL), or one 1 oz glass of hard liquor (44 mL). General instructions Take fwow-ltu-pweyisn and prescription medicines only as told by your health care provider. Keep all follow-up visits. This is important. This includes having regularly scheduled colonoscopies. Talk to your health care provider about when you need a colonoscopy. Contact a health care provider if: You have new or worsening bleeding during a bowel movement. You have new or increased blood in your stool. You have a change in bowel habits. You lose weight for no known reason. Summary Colon polyps are tissue growths inside the colon, which is part of the large intestine. They are one type of polyp that can grow in the body. Most colon polyps are noncancerous (benign), but some can become cancerous over time. This condition is diagnosed with a colonoscopy. This condition is treated by removing any polyps that are found. Most polyps can be removed during a colonoscopy. This information is not intended to replace advice given to you by your health care provider. Make sure you discuss any questions you have with your health care provider. Document Revised: 06/26/2020 Document Reviewed: 06/26/2020 [employer] Patient Education 2022 [employer]. Follow Up Care 11/02/2022 11:09:08 With:Anson ELDER, JOSE Damian, [facility] Address: [address] [place] [address], [address] [phone] [phone] When: Unknown Comments:Call for any problems. Office to call for follow up appointment. [facility] 11-30-2022 Evaluation + Plan note Extrac sebastien from: Title:ANES Post General Author:Brien Robles DO Date:11/30/22 Plan Transfer/Discharge: Patient exhibiting no signs of N/V. Hydration status is adequate. Extracted from: Title:Travis Basic PRE Author:Robles Robles DO Date:11/30/22 Plan [place] [employer] (ASA) physical status classification: Class III. Anesthetic Preoperative Plan: Anesthesia General, and Monitored anethesia care. Future Appointments Appointment Date:12/07/2022 01:15:00 PM Scheduled Provider:Azalia Neumann PA-C Location:.[facility] Appointment Type:Pain Management - Follow Up (FT) Appointment Date:12/28/2022 08:45:00 AM Scheduled Provider:Duane EVANS MD 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 His symptoms are improved following the right stellate ganglion block but still problematic. We discussed the option of a left stellate ganglion block ultimately if she further improvement. Risk, benefits, and alternatives were reviewed with the patient. He wishes to proceed. Follow-up 1 to 2 weeks after the injection to assess response. Patient agrees to plan of care. Future Appointments Appointment Date:10/22/2022 08:00:00 AM Scheduled Provider: [facility] Type:FM Medicare Wellness Subsequent Appointment Date:10/22/2022 09:00:00 AM Scheduled Provider:Kyle Daly MD Location:[facility] Appointment Type: Open Appointment Date:12/28/2022 08:45:00 AM Scheduled Provider:Duane EVANS MD 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 His loss of taste and smell are significantly impactful on quality life and activities of daily living. There has been significant data that supports stellate ganglion blocks to be helpful with these particular symptoms. The patient and I discussed treatment option including its risks, benefits, and alternatives. He wishes to proceed to soon as possible. Plan to follow-up 1 to 2 weeks after the procedure to assess response. Patient agrees with plan of care. Future Appointments Appointment Date:10/22/2022 08:00:00 AM Scheduled Provider: Location:[facility] Appointment Type: Medicare Wellness Subsequent Appointment Date:10/22/2022 09:00:00 AM Scheduled Provider:Kyle Daly MD Location:[facility] Appointment Type: Open Appointment Date:12/28/2022 08:45:00 AM Scheduled Provider:Duane EVANS MD Location:[facility] Appointment Type:URO Office Visit [facility]04-10-2023 Hospital Discharge instructions Patient Education 06/29/2022 08:16:21 Prostate Cancer Screening Prostate Cancer Screening The prostate is a walnut-sized gland that is located below the bladder and in front of the rectum in males. The function of the prostate (prostate gland) is to add fluid to semen during ejaculation. Prostate cancer is the second most common type of cancer in men. A screening test for cancer is a test that is done before cancer symptoms start. Screening can helpto identify cancer at an early stage, when the cancer can be treated more easily. The recommended prostate cancer screening test is a blood test called the prostate-specific antigen (PSA) test. PSA is a protein that is made in the prostate. As you age, your prostate naturally produces more PSA. Abnormally high PSA levels may be caused by: Prostate cancer. An enlarged prostate that is not caused by cancer (benign prostatic hyperplasia, BPH). This condition is very common in older men. A prostate gland infection (prostatitis). Medicines to assist with hair growth, such as finasteride. Depending on the PSA results, you may need more tests, such as: A physical exam to check the size of your prostate gland. Blood and imaging tests. A procedure to remove tissue samples from your prostate gland for testing (biopsy). Who should have screening? Screening recommendations vary based on age. If you are younger than age 40, screening is not recommended. If you are age 40 54 and you have no risk factors, screening is not recommended. If you are younger than age 55, ask your health care provider if you need screening if you have oneof these risk factors: ?Being of -B[place]hi descent. ?Having a family history of prostate cancer. If you are age 55 69, talk with your health care provider about your need for screening and how often screening should be done. If you are older than age 70, screening is not recommended. This is because the risks that screening can cause are greater than the benefits that it may provide (risks outweigh the benefits). If you are at high risk for prostate cancer, your health care provider may recommend that you have screenings more often or start screening at a younger age. You may be at high risk if you: Are older than age 55. Are -Bangladeshi. Have a father, brother, or uncle who has been diagnosed with prostate cancer. The risk may be higher if your family member's cancer occurred at an early age. What are the benefits of screening? There is a small chance that screening may lower your risk of dying from prostate cancer. The chance is small because prostate cancer is typically a slow-growing cancer, and most men with prostate cancer from a different cause. What are the risks of screening? The main risk of prostate cancer screening is diagnosing and treating prostate cancer that would never have caused any symptoms or problems (overdiagnosis and overtreatment). PSA screening cannot tell you if your PSA is high due to cancer or a different cause. A prostate biopsy is the only procedure to diagnose prostate cancer. Even the results of a biopsy may not tell you if your cancer needs janel treated. Slow-growing prostate cancer may not need any treatment other than monitoring, so diagnosing and treating it may cause unnecessary stress or other side effects. A prostate biopsy may also cause: Infection or fever. A false negative. This is a result that shows that you do not have prostate cancer when you actually do have prostate cancer. Questions to ask your health care provider When should I start prostate cancer screening? What is my risk for prostate cancer? How often do I need screening? What type of screening tests do I need? How do I get my test results? What do my results mean? Do I need treatment? Contact a health care provider if: You have difficulty urinating. You have pain when you urinate or ejaculate. You have blood in your urine or semen. You have pain in your back or in the area of your prostate. You have trouble getting or maintaining an erection (erectile dysfunction, ED). Summary Prostate cancer is a common type of cancer in men. The prostate (prostate gland) is located below the bladder and in front of the rectum. This gland adds fluid to semen during ejaculation. Prostate cancer screening may identify cancer at an early stage, when the cancer can be treated more easily. The prostate-specific antigen (PSA) test is the recommended screening test for prostate cancer. Discuss the risks and benefits of prostate cancer screening with your health care provider. If you are age 70 or older, screening is likely to lead to more risks than benefits (risks outweigh the benefits). This information is not intended to replace advice given to you by your health care provider. Make sure you discuss any questions you have with your health care provider. Document Released: 12/17/2017 Document Revised: 02/18/2018 Document Reviewed: 12/17/2017 [employer] Patient Education 2020 [employer] Follow Up Care 05/29/2022 08:50:51 With:ABBY ELDER, Duane Evans, URL Address: [facility] [address] , [place] [address]- When: Unknown [facility] 03-28-2023 Hospital Discharge instructions Patient Education 06/16/2022 11:29:07 EU - Transrectal Ultrasound of the Prostate with US guided biopsy Discharge Instructions (CUSTOM) Transrectal Ultrasound of the Prostate with US guided biopsy Even though there are no visible incisions, multiple prostate biopsies have been taken through the rectum and you need to follow some instructions to minimize the risks of bleeding. You may see some blood in your urine and stool for up to 1 week (and blood in the semen for severalmonths) Diet -You may resume your normal diet, but you may want to avoid alcohol, carbonated drinks, caffeine, and spicy foods, which may increase the irritation from the surgery. -Drink plenty of water to keep the urine clear. Activity -You should limit any physical activity for about 48 hours -No heavy lifting or straining (10 pound limit) -No driving a car and limit long car rides for 2 days -No strenuous exercise -No sexual intercourse until this is discussed with your doctor Bowels -Try to keep your bowel movements soft to minimize straining to have a bowel movement. -You may use a stool softener or over the counter laxative if needed -Difficult bowel movement may lead to straining and bleeding from the prostate Medications -You may resume your home medications unless instructed otherwise -Hold aspirin, ibuprofen, Coumadin (warfarin) and other blood thinners for about two days or until there is no active bleeding unless otherwise instructed -Finish the antibiotic which you have already started Things to watch for which would require an Emergency Room visit or call 911: (this is not a complete list) -Persistent or heavy bleeding or blood clots from the rectum or in the urine -Inability to urinate -Fever over 101.5 degrees Fahrenheit, with or without chills -Severe drug reactions with itching, hives or rash -Tenderness or swelling of the calves, chest pain, or shortness of breath Please call the office to arrange for your post-operative appointment in 1-2 weeks [phone] or [phone] Follow Up Care 05/29/2022 08:57:29 With:Duane EVANS Address: [facility] [address] [place] [address]- [facility] (1) When: Unknown Comments:Keep scheduled appointment [facility]03-10-2023 Hospital Discharge instructions Patient Education 05/29/2022 08:37:07 Prostate Cancer Screening Prostate Cancer Screening The prostate is a walnut-sized gland that is located below the bladder and in front of the rectum in males. The function of the prostate (prostate gland) is to add fluid to semen during ejaculation. Prostate cancer is the second most common type of cancer in men. A screening test for cancer is a test that is done before cancer symptoms start. Screening can helpto identify cancer at an early stage, when the cancer can be treated more easily. The recommended prostate cancer screening test is a blood test called the prostate-specific antigen (PSA) test. PSA is a protein that is made in the prostate. As you age, your prostate naturally produces more PSA. Abnormally high PSA levels may be caused by: Prostate cancer. An enlarged prostate that is not caused by cancer (benign prostatic hyperplasia, BPH). This condition is very common in older men. A prostate gland infection (prostatitis). Medicines to assist with hair growth, such as finasteride. Depending on the PSA results, you may need more tests, such as: A physical exam to check the size of your prostate gland. Blood and imaging tests. A procedure to remove tissue samples from your prostate gland for testing (biopsy). Who should have screening? Screening recommendations vary based on age. If you are younger than age 40, screening is not recommended. If you are age 40 54 and you have no risk factors, screening is not recommended. If you are younger than age 55, ask your health care provider if you need screening if you have oneof these risk factors: ?Being of -B[place]hi descent. ?Having a family history of prostate cancer. If you are age 55 69, talk with your health care provider about your need for screening and how often screening should be done. If you are older than age 70, screening is not recommended. This is because the risks that screening can cause are greater than the benefits that it may provide (risks outweigh the benefits). If you are at high risk for prostate cancer, your health care provider may recommend that you have screenings more often or start screening at a younger age. You may be at high risk if you: Are older than age 55. Are -Bangladeshi. Have a father, brother, or uncle who has been diagnosed with prostate cancer. The risk may be higher if your family member's cancer occurred at an early age. What are the benefits of screening? There is a small chance that screening may lower your risk of dying from prostate cancer. The chance is small because prostate cancer is typically a slow-growing cancer, and most men with prostate cancer from a different cause. What are the risks of screening? The main risk of prostate cancer screening is diagnosing and treating prostate cancer that would never have caused any symptoms or problems (overdiagnosis and overtreatment). PSA screening cannot tell you if your PSA is high due to cancer or a different cause. A prostate biopsy is the only procedure to diagnose prostate cancer. Even the results of a biopsy may not tell you if your cancer needs janel treated. Slow-growing prostate cancer may not need any treatment other than monitoring, so diagnosing and treating it may cause unnecessary stress or other side effects. A prostate biopsy may also cause: Infection or fever. A false negative. This is a result that shows that you do not have prostate cancer when you actually do have prostate cancer. Questions to ask your health care provider When should I start prostate cancer screening? What is my risk for prostate cancer? How often do I need screening? What type of screening tests do I need? How do I get my test results? What do my results mean? Do I need treatment? Contact a health care provider if: You have difficulty urinating. You have pain when you urinate or ejaculate. You have blood in your urine or semen. You have pain in your back or in the area of your prostate. You have trouble getting or maintaining an erection (erectile dysfunction, ED). Summary Prostate cancer is a common type of cancer in men. The prostate (prostate gland) is located below the bladder and in front of the rectum. This gland adds fluid to semen during ejaculation. Prostate cancer screening may identify cancer at an early stage, when the cancer can be treated more easily. The prostate-specific antigen (PSA) test is the recommended screening test for prostate cancer. Discuss the risks and benefits of prostate cancer screening with your health care provider. If you are age 70 or older, screening is likely to lead to more risks than benefits (risks outweigh the benefits). This information is not intended to replace advice given to you by your health care provider. Make sure you discuss any questions you have with your health care provider. Document Released: 12/17/2017 Document Revised: 02/18/2018 Document Reviewed: 12/17/2017 [employer] Patient Education 2020 [employer]. Follow Up Care 05/28/2021 09:13:53 With:ABBY ELDER, Duane R, URL Address: [address] [place] [id number]- When: Unknown [facility] evaluation + Plan note Future Appointments Appointment Date:06/02/2022 08:45:00 AM Scheduled Provider: Location:[facility] Appointment Type:Urology CALL PAT FT Appointment Date:06/16/2022 10:30:00 AM Scheduled Provider: Location:[facility] Appointment Type:Urology FT Appointment Date:06/16/2022 10:30:00 AM Scheduled Provider: Location:.UROLOGY Appointment Type: Prostate Urology (FT) Appointment Date:06/29/2022 09:30:00 AM Scheduled Provider:Duane EVANS MD Location:[facility] Appointment Type:URO Office Visit Future Scheduled Tests Radiology* US Prostate, [facility] 06/16/22 [facility] evaluation + Plan note Future Appointments Appointment Date:06/29/2022 09:30:00 AM Scheduled Provider:Duane EVANS MD Location:[facility] Appointment Type:URO Office Visit Diagnostic Tests Pending * Prostate Hist[facility] ([facility]) [facility] Future App[facility]ments Appointment Date:12/28/2022 08:45:00 AM Scheduled Provider:Duane EVANS MD Location:[facility] Appointment Type:URO Office Visit Diagnostic Tests Pending * PSA Free & Total 06/29/22 [facility] evaluation + Plan note Future Appointments Appointment Date:11/16/2022 01:45:00 PM Scheduled Provider: [facility] Type:Surgery FT Appointment Date:11/30/2022 01:20:00 PM Scheduled Provider: Location:[facility] Appointment Type:Surgery FT Appointment Date:12/07/2022 01:15:00 PM Scheduled Provider:Azalia Neumann PA-C [facility] Type:Pain Management - Follow Up (FT) Appointment Date:12/28/2022 08:45:00 AM Scheduled Provider:Duane EVANS MD Location:[facility] Appointment Type:URO Office Visit Appointment Date:10/25/2023 01:00:00 PM Scheduled Provider: Location:[facility] Appointment Type: Medicare Wellness Subsequent Appointment Date:10/25/2023 01:40:00 PM Scheduled Provider:Kyle Daly MD Location:[facility] Appointment Type: Open [facility] Evaluation + Plan note Future Appointments Appointment Date:11/30/2022 01:20:00 PM Scheduled Provider: Location:[facility] Appointment Type:Surgery FT Appointment Date:12/07/2022 01:15:00 PM Scheduled Provider:Azalia Neumann PA-C Location:[facility] Appointment Type:Pain Management - Follow Up (FT) Appointment Date:12/28/2022 08:45:00 AM Scheduled Provider:Duane EVANS MD [facility] Type:URO Office Visit Appointment Date:10/25/2023 01:00:00 PM Scheduled Provider: Location:[facility] Appointment Type:FM Medicare Wellness Subsequent Appointment Date:10/25/2023 01:40:00 PM Scheduled Provider:Kyle Daly MD [facility] Future Appointments Appointment Date:12/28/2022 08:45:00 AM Scheduled Provider:Duane EVANS MD Location:[facility] Appointment Type:URO Office Visit Appointment Date:10/25/2023 01:00:00 PM Scheduled Provider: Location:[facility] Appointment Type: Medicare Wellness Subsequent Appointment Date:10/25/2023 01:40:00 PM Scheduled Provider:Kyle Daly MD Location:[facility] Appointment Type:[facility] Dig[facility] Evaluation + Plan note Future Appointments Appointment Date:04/24/2024 09:15:00 AM Scheduled Provider:Kyle Daly MD Location:[facility] Appointment Type: Open Appointment Date:10/26/2024 01:00:00 PM Scheduled Provider: Location:[facility] [place] Appointment Type: Medicare Wellness Subsequent Appointment Date:12/29/2024 08:15:00 AM Scheduled Provider:Duane EVANS MD [facility] Type:URO Office Visit Diagnostic Tests Pending * PSA Total 12/27/23 [facility] Hospital course Narrative No data available for this section [facility] Hospital Discharge instructions No data available for this section [facility] No data available for this section [facility] [place] Summary Purpose Family History No Family History Records FoundNo Family History Records Found No data available for this section No Family History Records Found Advance Directives No Advanced Directives Records FoundNo Advanced Directives Records FoundNo Advanced Directives Records Found Additional Source Comments Patient Care team informatio n (unrecognized section and content) Personnel Name: SOCORRO MAN MD Address: Address: [address] [place] [address] Personnel Name: SOCORRO MAN MD Address: Address: [address] [place] [address] Personnel Name: SOCORRO MAN MD Address: Address: [address] [place] [address] Personnel Name: SOCORRO MAN MD Address: Address: [address] [place] [address] Personnel Name: Kyle Daly MD Address: Address: 57 [place] [address] Personnel Name: Kyle Daly MD Address: Address: [address] [place] [address] Personnel Name: Kyle Daly MD Address: Address: [address] [place] [address] Personnel Name: Kyle Daly MD Address: Address: [address] [place] [address] Personnel Name: Kyle Daly MD Address: Address: [address] [place] [address] Personnel Name: Kyle Daly MD Address: Address: [address] [place] [address] Personnel Name: Kyle Daly MD Address: Address: [address] [place] [address] (unrecognized sect ion and content) No Status Records FoundNo Status Records FoundNo Status Records Found INFORMATION SOURCE (unrecogn ized section and content) DATE CREATED AUTHOR 08/05/2022 [facility] DATE CREATED AUTHOR AUTHOR'S ORGANIZ ATION 09/22/2023 [facility] EPIC DATE CREATED AUTHOR AUTHOR'S ALINA ATION 01/19/2024 [facility] FOR RECORDS PERTAINING TO PATIENTS WHO ARE OR HAVE BEEN ENROLLED IN A CHEMICAL DEPENDENCY/SUBSTANCEABUSE PROGRAM, SOME INFORMATION MAY BE OMITTED. This clinical summary was aggregated from multiple sources. Caution should be exercised in using it in the provision of clinical care. This summary normalizes information from multiple sources, and as a consequence, information in this document may materially change the coding, format and clinical context of patient data. In addition, data may be omitted in some cases. CLINICAL DECISIONS SHOULD BE BASED ON THE PRIMARY CLINICAL RECORDS. [facility]. provides no warranty or guarantee of the accuracy or completeness of information in this document.
== END 2024-01-27 09:42 | disposition home or self-care (01) ==
LOC: RAD 09:42
PROVIDERS: PCP Family Medicine; Visit Provider Family Medicine
DX: R05.9 Cough, unspecified (principal)
CPT/HCPCS: 71046

== ENCOUNTER 2024-12-20 11:17 | Outpatient (OUT) | payer MEDICARE, OTHER, SELFPAY ==
--- OUTSIDE RECORDS SUMMARY | 2024-12-20 11:22 | XMS_ITS | Clinical Summary ---
Author Organization [facility] Address [address] [place] [address] Care Team Providers Care Pi/Senior Research Associate Name Role Phone Kyle Daly MD Primary Care Provider [phone] Kelly Steiner OD Unavailable Allergies Active Allergy Reactions Criticality Noted Date Comments Bacitracin Rash Low 12/17/2022 Penicillin G 11/18/2016 Medications atorvastatin (Lipitor) 10 MG tablet Take 10 mg by mouth 12/17/2022 Active finasteride (Proscar) 5 MG tablet Take 5 mg by mouth Daily 09/03/2023 Active Active Problems Problem Noted Date Diagnosed Date Age-related nuclear cataract of both eyes 2023 Social History Tobacco Use Types Packs/Day Years Used Date Smoking Tobacco: Former Cigarettes Tobacco Cessation:Counseling Given: Not Answered Sex and Gender Information Value Date Recorded Sex Assigned at Male 09/14/2023 8:53 AM EDT Legal Sex Male 6:43 PM EDT Gender Identity Male 09/14/2023 8:53 AM EDT Sexual Orientation Straight 09/14/2023 8: 53 AM EDT Plan of Treatment Not on file Insurance MEDICARE [facility] [address] Care Teams Pi/Senior Research Associate Relationship Specialty Start Date End Date Kyle Daly MD PCP - General Family Medicine 09/21/23 Kelly Steiner OD [address] [place] [id number] Referring Physician Optometry 09/21/23
[2024-12-20 12:55] LABS: Prostate Specific Antigen Dx 1.45 ng/mL (<=4.00)
== END 2024-12-20 11:18 | disposition home or self-care (01) ==
LOC: LAB 11:21
PROVIDERS: PCP Family Medicine; Visit Provider Urology
DX: R97.20 Elevated prostate specific antigen [PSA] (principal); Z80.42 Family history of malignant neoplasm of prostate
CPT/HCPCS: 36415; 84153